=== PATIENT | male | born 1950 | race Caucasian/White ===

== ENCOUNTER → 2017-11-19 | Outpatient (CLI) | payer OTHER ==
[~2017-11-19] MED LIST: BISO1TAB4; BISO1TAB6; BP MED; HYDR-3720 PO; NASALCORT; OMEP20CA12
== END ==
LOC: PREOP 05:35
PROVIDERS: ATTEND Surgery
DX: Z01.818 Encounter for other preprocedural examination (principal); Z12.11 Encounter for screening for malignant neoplasm of colon; K21.9 Gastro-esophageal reflux disease without esophagitis

== ENCOUNTER → 2017-12-08 | Outpatient (CLI) | payer MEDICARE, OTHER ==
[~2017-12-08] MED LIST changes: +APIX5TAB PO; +ASCO-262 PO; +BISO1TAB6 PO; +CLAR-19 PO; +CRAN400T3 PO; +FLUT16SP22 NS; +LOSA50TA36 PO; +METF500T4 PO; +METR500T21 PO; +MULT-35 PO; +PANT40TA3 PO; +TAMS0.4C2 PO
== END ==
LOC: CARD 11:01
PROVIDERS: ATTEND Internal Medicine Interventional Cardiology
DX: I48.91 Unspecified atrial fibrillation (principal); I10 Essential (primary) hypertension; E11.9 Type 2 diabetes mellitus without complications; E66.9 Obesity, unspecified
CPT/HCPCS: 93306

== ENCOUNTER → 2017-12-09 | Outpatient (CLI) | payer MEDICARE, OTHER ==
[~2017-12-09] VITALS: Ht 177.8 cm; Wt 123.8 kg
[~2017-12-09] MED LIST changes: +CATHETER FLUSH 10 ML SYR IV PRN; +REGADENOSON 0.4 MG/5 ML SYR (LEXISCAN) IV ONE
[2017-12-09 09:28] VITALS: BP 131/93
[2017-12-09 09:32] VITALS: BP 155/90
[2017-12-09 22:11] VITALS: BP 133/93
--- NOTE | 2017-12-09 22:11 | Cardiology Stress Test Report ---
Stress Test Report Type of NM Stress Test: Test Type: LEXISCAN 0.4MG/5ML Date of Procedure/Referring: Date of Procedure: Dec 09, 2017 PCP Orestes Montalvo MD Admitting Physician Marlyn Alcaraz MD Indications: Atrial fibrillation Baseline Heart Rate: 86 Baseline Blood Pressure: Blood Pressure Systolic: 133 Blood Pressure Diastolic: 93 Baseline EKG: Baseline EKG: Atrial fibrillation Summary: The patient was brought to the stress lab after informed consent was taken. Lexiscan stress test was performed according to the protocol. Low-grade exercise was performed. Baseline EKG showed atrial fibrillation at 86 bpm. Blood pressure 133/93 mmHg. Maximum heart rate 139 BPM with blood pressure of 155/90 mmHg. Patient did not have any chest pain or ST changes during Lexiscan infusion. 10.61 mCi of Myoview was given for rest imaging and 31.4 mCi of Myoview was given for stress imaging. Transient ischemic dilatation score 1.0. Ejection fraction of 50 percent with normal wall motion. There is a small reversible apical defect noted. Conclusion: Pharmacological nuclear stress test is negative for ischemia. normal LV function with no wall motion abnormalities. mild reversible defect in the apex which in the presence of normal wall motion could be an artifact. Clinical correlation is recommended. Orestes MONTALVO MD Dec 09, 2017 10:11 pm
== END ==
LOC: CARD 07:24
PROVIDERS: ATTEND Internal Medicine Interventional Cardiology
DX: I48.91 Unspecified atrial fibrillation (principal); E11.9 Type 2 diabetes mellitus without complications; I10 Essential (primary) hypertension; E66.9 Obesity, unspecified
CPT/HCPCS: 78452; 93017

== ENCOUNTER 2017-12-30 07:38 | Day surgery (SDC) | payer MEDICARE, OTHER ==
[~2017-12-30] VITALS: Ht 177.8 cm; Wt 123.8 kg
[2017-12-30] VITALS (8 sets, daily range): BP systolic 107–164; BP diastolic 56–115
[~2017-12-30 07:38] MED LIST changes: -CATHETER FLUSH 10 ML SYR IV PRN; -REGADENOSON 0.4 MG/5 ML SYR (LEXISCAN) IV ONE
--- OUTSIDE RECORDS SUMMARY | 2017-12-30 07:44 | XMS REPORT | Continuity of Care Document ---
Author Author [facility] Organization [facility] Address Unknown Phone Unavailable Allergies Active Description Code Type Severity Reaction Onset Reported/Identified Relationship to Patient Clinical Status Yes aspirin [id number] Drug Allergy Unknown N/A 12/19/2006 Yes codeine [id number] Drug Allergy Unknown N/A 12/19/2006 Yes Penicillins [id number] Drug Allergy Unknown N/A 12/19/2006 Yes ibuprofen [id number] Drug Allergy Mild N/A 03/02/2009 Medications There is no data. Problems Date Dx Coded Attending Type Code Diagnosis Diagnosed By 08/28/2015 LUL JORDAN MD Ot G47.33 OBSTRUCTIVE SLEEP APNEA (ADULT) (PEDIATR 09/30/2015 BRITTANI HUNTER MD Ot 729.5 11/06/2015 LEILA CABRERA Ot R00.2 12/29/2015 LEILA CABRERA Ot R00.2 PALPITATIONS 11/22/2017 RENATO MONTANA MD Ot K21.9 GASTRO-ESOPHAGEAL REFLUX DISEASE WITHOUT 11/22/2017 RENATO MONTANA MD Ot Z01.818 ENCOUNTER FOR OTHER PREPROCEDURAL EXAMIN 11/22/2017 RENATO MONTANA MD Ot Z12.11 ENCOUNTER FOR SCREENING FOR MALIGNANT NE 11/24/2017 RENATO MONTANA MD Ot K21.9 GASTRO-ESOPHAGEAL REFLUX DISEASE WITHOUT 11/24/2017 RENATO MONTANA MD Ot Z01.818 ENCOUNTER FOR OTHER PREPROCEDURAL EXAMIN 11/24/2017 RENATO MONTANA MD Ot Z12.11 ENCOUNTER FOR SCREENING FOR MALIGNANT NE 12/02/2017 BRITTANI HUNTER MD Ot 729.5 PAIN IN LIMB 12/02/2017 LEILA CABRERA Ot R00.2 PALPITATIONS 12/02/2017 RENATO MONTANA MD Ot K21.9 GASTRO-ESOPHAGEAL REFLUX DISEASE WITHOUT 12/02/2017 RENATO MONTANA MD Ot Z01.818 ENCOUNTER FOR OTHER PREPROCEDURAL EXAMIN 12/02/2017 RENATO MONTANA MD Ot Z12.11 ENCOUNTER FOR SCREENING FOR MALIGNANT NE 12/10/2017 Orestes MELÉNDEZ MD Ot E11.9 TYPE 2 DIABETES MELLITUS WITHOUT COMPLIC 12/10/2017 Orestes MELÉNDEZ MD, Ot E66.9 OBESITY, UNSPECIFIED 12/10/2017 Orestes MELÉNDEZ MD Ot I10 ESSENTIAL (PRIMARY) HYPERTENSION 12/10/2017 Orestes MELÉNDEZ MD Ot I48.91 UNSPECIFIED ATRIAL FIBRILLATION 12/14/2017 Orestes MELÉNDEZ MD, Ot E11.9 TYPE 2 DIABETES MELLITUS WITHOUT COMPLIC 12/14/2017 Orestes MELÉNDEZ MD, Ot E66.9 OBESITY, UNSPECIFIED 12/14/2017 Orestes MELÉNDEZ MD Ot G47.30 SLEEP APNEA, UNSPECIFIED 12/14/2017 Orestes MELÉNDEZ MD Ot I10 ESSENTIAL (PRIMARY) HYPERTENSION 12/14/2017 Orestes MELÉNDEZ MD Ot I48.91 UNSPECIFIED ATRIAL FIBRILLATION 12/14/2017 Orestes MELÉNDEZ MD Ot Z53.9 PROCEDURE AND TREATMENT NOT CARRIED OUT, 12/14/2017 Orestes MELÉNDEZ MD Ot Z68.41 BODY MASS INDEX (BMI) 40.0-44.9, ADULT 12/14/2017 Orestes MELÉNDEZ MD Ot Z79.01 CUSTODIAL (CURRENT) USE OF ANTICOAGULANT 12/14/2017 Orestes MELÉNDEZ MD Ot Z79.84 CUSTODIAL (CURRENT) USE OF ORAL HYPOGLYC 12/14/2017 Orestes MELÉNDEZ MD Ot 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 Results There is no data. Encounters ACCT No. Visit Date/Time Discharge Status Pt. Type Provider Facility Loc./Unit Complaint [id number] 12/09/2017 07:24:00 12/09/2017 23:59:59 CLS Outpatient Orestes MELÉNDEZ MD [facility] CARD I48.91 A FIB [id number] 12/08/2017 11:01:00 12/08/2017 23:59:59 CLS Outpatient Orestes MELÉNDEZ MD [facility] CARD I48.91 AFIB [id number] 12/02/2017 10:32:00 12/02/2017 23:59:59 CLS Outpatient Orestes MELÉNDEZ MD [facility] CATH AF [id number] 11/24/2017 13:15:00 11/24/2017 23:59:59 CLS Preadmit RENATO MONTANA MD [facility] ENDO SCREENING/ABD PAIN/ REFLUX [id number] 11/19/2017 05:35:00 11/19/2017 23:59:59 CLS Outpatient RENATO MONTANA MD [facility] PREOP COLONOSCOPY/EGD [id number] 12/30/2015 09:00:00 12/30/2015 23:59:59 CLS Preadmit LEILA CABRERA [facility] CARD PALP [id number] 09/30/2015 08:58:00 12/29/2015 00:01:00 DIS Outpatient LEILA CABRERA [facility] CARD PALP [id number] 08/27/2015 21:12:00 08/28/2015 06:45:00 DIS Outpatient LUL JORDAN MD [facility] SLEEP OBSERVED APNEAS SNORING MIKAELA [id number] 03/22/2013 15:43:00 03/22/2013 23:59:59 CLS Outpatient BRITTANI HUNTER MD [facility] RAD RT FOOT PAIN [id number] 12/30/2017 09:30:00 PEN Preadmit Orestes MELÉNDEZ MD [facility] AFIB,ABN NUCLEAR STRESS TEST [id number] 09/30/2015 08:56:00 Document Registration
[2017-12-30] MEDS ORDERED: NS IV 1000 ML 1,000 ML ONE (07:46)
[2017-12-30] MEDS ORDERED: HEParin (CATH LAB) 2,000 ML IV ONE (07:47)
[2017-12-30] MEDS ORDERED: NS IV 1000 ML 1,000 ML IV SCH ×2 (08:00→10:43)
[2017-12-30 08:16] LABS: HEMOGLOBIN 15.4 G/DL (13.3-17.7); MEAN PLATELET VOLUME 11.7 FL (7.4-10.4); RED BLOOD COUNT 5.01 10^6/uL (4.35-5.85); RED CELL DISTRIBUTION WIDTH 13.8 % (10.0-14.5); WHITE BLOOD COUNT 6.7 10^3/uL (4.3-11.0)
[2017-12-30] MEDS ORDERED: INFLUENZA TRIvalent 2017-2018 0.5 ML/45 MCG SYR IM ONE (08:30)
[2017-12-30 08:32] LABS: INR 1.1 (0.8-1.4); PROTHROMBIN TIME PATIENT 14.6 SEC (12.2-14.7)
[2017-12-30 08:40] LABS: ALANINE AMINOTRANSFERASE 66 U/L (0-55); ALBUMIN 4.4 GM/DL (3.2-4.5); ALKALINE PHOSPHATASE 61 U/L (40-136); BILIRUBIN,TOTAL 1.5 MG/DL (0.1-1.0); BUN/CREATININE RATIO 16; CALCIUM 9.5 MG/DL (8.5-10.1); CARBON DIOXIDE 24 MMOL/L (21-32); CHLORIDE 106 MMOL/L (98-107); CHOLESTEROL 168 MG/DL (< 200); CREATININE SERUM 0.99 MG/DL (0.60-1.30); GFR ESTIMATED > 60; GLUCOSE 98 MG/DL (70-105); HDL CHOLESTEROL 45 MG/DL (40-60); POTASSIUM 4.1 MMOL/L (3.6-5.0); SODIUM 138 MMOL/L (135-145); TOTAL PROTEIN 7.7 GM/DL (6.4-8.2); TRIGLYCERIDES 100 MG/DL (<150); VLDL CHOLESTEROL 20 MG/DL (5-40)
[2017-12-30] MEDS ORDERED: ACET-2267 PO (08:50)
[2017-12-30] MEDS ORDERED: fentaNYL INJECTION 100 MCG/2 ML AMP ONE (09:20)
[2017-12-30] MEDS ORDERED: HEParin 1000 UNIT/ML (10ML VIAL) FOR BOLUS ONE (09:20)
[2017-12-30] MEDS ORDERED: VERAPAMIL 5 MG/2 ML (CALAN) VIAL IV ONE (09:20)
[2017-12-30] MEDS ORDERED: NITRO DRIP 25000 MCG/D5W 250 ML IV ONE (09:20)
[2017-12-30] MEDS ORDERED: MIDAZOLAM 5 MG/5 ML (VERSED) VIAL ONE (09:20)
[2017-12-30] MEDS ORDERED: LIDOCAINE 1% INJ 50 ML (XYLOCAINE) VIAL ONE (09:26)
--- NOTE | 2017-12-30 10:43 | Cardiac Procedure Note-CS/ASA ---
Pre-Procedure Note Pre-Op Procedure Note H&P Reviewed The H&P was reviewed, patient examined and no changes noted. Date H&P Reviewed: Dec 30, 2017 Time H&P Reviewed: 09:45 Conscious Sedation Pre-Proced Time Reviewed: 09:45 ASA Class: 3 Airway Mallampati Classification: (lower sioux appropriate class) I. II. III, IV Lungs Heart ASA score ASA 1: a normal healthy patient ASA 2: a patient with a mild systemic disease (mid diabetes, controlled hypertension, obesity ASA 3: a patient with a severe systemic disease that limits activity (angina , COPD, prior Myocardial infarction) ASA 4: a patient with an incapacitating disease that is a constant threat to life (CHF, renal failure) ASA 5: a moribund patient not expected to survive 24 hrs. (ruptured aneurysm) ASA 6: a declared brain patient whose organs are being harvested. For emergent operations, add the letter E after the classification Grade 1 Sedation Plan: Analgesia, Amnesia, Plan communicated to team members, Discussed options with patient/fam, Discussed risks with patient/fam Note The patient is an appropriate candidate to undergo the planned procedure, sedation, and anesthesia. The patient immediately re-assessed prior to indication. Orestes MELÉNDEZ MD Dec 30, 2017 10:43 am
[2017-12-30] MEDS ORDERED: PATIENT MAY USE OWN MEDS, ALL PO SCH (10:45)
--- NOTE | 2017-12-30 10:49 | Coronary Angiography Report ---
Coronary Angiography Report DATE OF PROCEDURE: 12/30/17 INDICATION: atrial fibrillation, need for class IC antiarrhythmic, abnormal nuclear stress test. PREOPERATIVE DIAGNOSIS: atrial fibrillation, need for class IC antiarrhythmic, abnormal nuclear stress test. POSTOPERATIVE DIAGNOSIS: patent epicardial coronary vessels. HISTORY: this is a 67-year-old gentleman with history of persistent atrial fibrillation. Class IC antiarrhythmic therapy is recommended. Therefore to rule out CAD, nuclear stress test was performed which was abnormal. Therefore, the patient was scheduled for coronary angiography. PROCEDURES PERFORMED: 1.Coronary angiography. 2.Left heart catheterization. 3. Aortic root injection. 4. Thoracic aortogram. COMPLICATIONS: None. SPECIMENS: None. ESTIMATED BLOOD LOSS: 10 mL ANESTHESIA: Conscious sedation ANTICOAGULATION: IV heparin CONTRAST: 100 mL. FLUOROSCOPY: 5.3 minutes. FLOUROSCOPY DOSE: 723 mgy. PROCEDURE DETAILS: The patient is a 67 male and was brought to the minilab operator after informed consent was taken. All the risks and complications were explained in detail; this included the risk of bleeding, vascular damage, stroke , DC and even . The patient was draped and prepped in the usual sterile fashion. Access was gained in the right radial artery with a 6 Maori sheath. Coronary angiography of the left system, aortic root injection, aortogram and left heart catheterization was performed with the [place] catheter. RCA was engaged with a JR4 catheter. FINDINGS: 1.Left main: patent. 2.LAD: patent, transapical vessel. Mild slow flow was noted. 3.Left circumflex artery: patent 4.RCA: patent with mild slow flow was noted. 5.Left heart catheterization: aortic pressure 108/78 mmHg. LV pressure 106/16 mmHg. LVEDP 20 mmHg. Mild LV systolic dysfunction with an EF of 45 percent with global hypokinesis. No gradient across the aortic valve. 6. Aortic root injection: Patent ostium of the left main with no aortic regurgitation. 7. Aortogram: No evidence of aneurysm or dissection noted. CONCLUSIONS: Patent epicardial coronary arteries. Slow flow noted which is likely secondary to endothelial dysfunction. Mild LV systolic dysfunction. Jeny Montalvo MD, FACP, FACC, [facility] Interventional Cardiology Orestes MONTALVO MD Dec 30, 2017 10:49 am
--- NOTE | 2017-12-30 10:51 | Discharge Inst-Post CATH ---
Discharge Inst-CATH Post Cardiac Cath D/C Inst Follow Up/Plan Dr. Montalvo in one to 2 weeks. CARDIAC CATH DISCHARGE INSTRUCTIONS *Hold Metformin for 48 hours post heart cath. ACTIVITY * Go Home directly and rest. * Limit activity of the leg (or wrist if it was used) for 7 days including aerobics, swimming, jogging, bicycling, etc. * Restrict stair-climbing for 7 days if possible, if not, climb up with your non -cath leg, then bring together on the same step. * Avoid lifting, pushing, pulling or excessive movement of the affected extremity for 7 days. * Customary sexual activity may be resumed after 2 days-use caution not to use a position that strains or causes pain to the affected extremity. * No driving for 24 hours. * NO SMOKING. * Avoid straining for bowel movements for 7 days. * Gentle walking on level ground is allowed. * Returning to work will depend on the type of procedure and the results. Your doctor will discuss this with you. CALL YOUR DOCTOR FOR ANY OF THE FOLLOWING: *If bleeding from the puncture site occurs- Apply gentle pressure to site with clean cloth and call your doctor or EMS. * If a knot or lump forms under the skin, increases in size, or causes pain. * If bruising appears to be worsening or moving further down your leg instead of disappearing. * Temperature above 101 F. CARE OF YOUR GROIN INCISION; * Bruising or purple discoloration of the skin near the puncture site is common. * You may shower only, no bathtub bathing for 5 days. Be careful to avoid slipping as your leg may feel stiff. * If a closure device was used on your femoral artery, please see the attached guide regarding care of the device and your leg. * REMOVE the dressing from your groin the next day after your procedure in the shower. CARE OF YOUR WRIST INCISION; * Bruising or purple discoloration of the skin near the puncture site is common. * You may shower. * DO NOT submerge wrist. * Remove dressing in 24 hours. Orestes MONTALVO MD Dec 30, 2017 10:51 am
--- NOTE | 2017-12-30 10:53 | Cardiology Discharge Summary ---
Diagnosis/Chief Complaint Date of Admission 12/30/2017 Date of Discharge 12/30/2017 Admission Diagnosis atrial fibrillation, abnormal nuclear stress test Final/Discharge Diagnosis patent epicardial coronary arteries. Chief Complaint/HPI Chief Complaint/HPI this is a 67-year-old gentleman with persistent atrial fibrillation. Class IC antiarrhythmic therapy needs to be started. CAD needs to be ruled out therefore stress test was performed which was abnormal. Therefore coronary angiography was recommended. Discharge Summary Procedures coronary angiography which shows patent epicardial coronary vessels. Hospital Course stable. Pending Labs Laboratory Tests 12/30/17 08:10: White Blood Count 6.7, Red Blood Count 5.01, Hemoglobin 15.4, Hematocrit 44, Mean Corpuscular Volume 89, Mean Corpuscular Hemoglobin 31, Mean Corpuscular Hemoglobin Concent 35, Red Cell Distribution Width 13.8, Platelet Count 140, Mean Platelet Volume 11.7, Prothrombin Time 14.6, INR Comment 1.1, Activated Partial Thromboplast Time 42, Sodium Level 138, Potassium Level 4.1, Chloride Level 106, Carbon Dioxide Level 24, Anion Gap 8, Blood Urea Nitrogen 16, Creatinine 0.99, Estimat Glomerular Filtration Rate > 60, BUN/Creatinine Ratio 16, Glucose Level 98, Calcium Level 9.5, Total Bilirubin 1.5, Aspartate Amino Transf (AST/SGOT) 39, Alanine Aminotransferase (ALT/SGPT) 66, Alkaline Phosphatase 61, Total Protein 7.7, Albumin 4.4, Triglycerides Level 100, Cholesterol Level 168, LDL Cholesterol Direct 109, VLDL Cholesterol 20, HDL Cholesterol 45 Discussion & Recommendations Discussion follow-up with Dr. Montalvo in one to 2 weeks. Continue apixaban. Follow up appt.: Dr. Montalvo in one to 2 weeks. Dicharge Diet: Regular Diet Activity as Tolerated: Yes Home Medications Reviewed patient Home Medication Reconciliation Form Discharge Home Medications: Reviewed and agree with Discharge Medication list on patient's Discharge Instruction sheet Condition at discharge stable. Instructions to patient/family Dr. Montalvo in one to 2 weeks. Orestes MONTALVO MD Dec 30, 2017 10:53 am
== END 2017-12-30 13:35 | disposition home or self-care (01) ==
LOC: CATH 07:38 → ICU 10:58 → CATH 13:35
PROVIDERS: ATTEND Internal Medicine Interventional Cardiology
DX: I48.1 Persistent atrial fibrillation (principal); R94.39 Abnormal result of other cardiovascular function study; I07.1 Rheumatic tricuspid insufficiency; I10 Essential (primary) hypertension; E11.9 Type 2 diabetes mellitus without complications; G47.30 Sleep apnea, unspecified; E66.9 Obesity, unspecified; Z68.39 Body mass index [BMI] 39.0-39.9, adult; Z79.01 Long term (current) use of anticoagulants; Z79.84 Long term (current) use of oral hypoglycemic drugs; Z79.899 Other long term (current) drug therapy
CPT/HCPCS: 36415; 80053; 80061; 85027; 85610; 85730; 87081; 93458; 93567

== ENCOUNTER 2018-01-27 07:57 | Day surgery (SDC) | payer MEDICARE, OTHER ==
[2018-01-27] VITALS (8 sets, daily range): BP systolic 137–151; BP diastolic 92–119
[~2018-01-27] VITALS: Ht 177.8 cm; Wt 123.8 kg
[~2018-01-27 07:57] MED LIST changes: +ACET-2267 PO
[2018-01-27] MEDS ORDERED: NS IV 1000 ML 1,000 ML ONE (07:58)
[2018-01-27] MEDS ORDERED: LIDOCAINE 1% INJ 50 ML (XYLOCAINE) VIAL ONE (07:58)
[2018-01-27] MEDS ORDERED: NS IV 1000 ML 1,000 ML IV SCH (08:45)
[2018-01-27] MEDS ORDERED: proPOfol 200 MG/20 ML (DIPRIVAN) VIAL IV ONE (08:51)
[2018-01-27] MEDS ORDERED: MIDAZOLAM 2 MG/2 ML (VERSED) VIAL ONE (08:52)
[2018-01-27] MEDS ORDERED: LIDOCAINE 2% VISCOUS 15 ML UDC ONE (09:17)
--- NOTE | 2018-01-27 10:00 | Progress Note-Standard ---
Standard Progress Note Progress Notes/Assess & Plan Time Seen by Provider: 09:15 Final Diagnosis Consulted for sedation for MANUEL/cardioversion. History obtained, chart reviewed. Propofol 100mg IV tolerated well. VSS report to RN care assumed. JUAN PABLO RUIZ CRNA Jan 27, 2018 10:00
--- NOTE | 2018-01-27 10:13 | Implantation of Loop Monitor ---
Implant of Loop Monitior PROCEDURE PHYSICIAN: Jeny Montalvo MD IMPLANTATION OF LOOP MONITOR REPORT DATE OF PROCEDURE: 01/27/18 ATTENDING PHYSICIAN: Dr. Hunter Montalvo. REFERRING PHYSICIAN: PERFORMING PHYSICIAN: Dr. Hunter Montalvo. INDICATION: Long-term surveillance of atrial fibrillation PREOP DIAGNOSIS: Long-term surveillance of atrial fibrillation POSTOP DIAGNOSIS: Atrial fibrillation, s/p implantation of loop recorder. PROCEDURE DETAILS: The patient is a 67 male with history of atrial fibrillation requiring long- term surveillance. Therefore implantable loop recorder was discussed and agreed with the patient. Informed consent was taken. All risks and complications were discussed at length. The patient was draped and prepped in the usual sterile fashion. Local anesthesia was lidocaine, which was given in the substernal area close to the 4th intercostal space. [employer] Linq Loop monitor was implanted according to the protocol. Steri-Strips were placed at the end of the procedure. There were no complications and the patient tolerated the procedure well. The device was interrogated with a voltage of >0.2mV. ANESTHESIA: Local anesthesia with lidocaine. COMPLICATIONS: None CONTRAST/FLUOROSCOPY: None CONCLUSION: 1. Successful implantation of loop monitor for AF. 2. No complication and the patient tolerated the procedure well. Jeny Montalvo MD, [facility], CCDS Cardiac Electrophysiology Orestes MONTALVO MD Jan 27, 2018 10:13 am
--- NOTE | 2018-01-27 10:44 | Progress Note-Standard ---
Standard Progress Note Progress Notes/Assess & Plan Time Seen by Provider: 10:40 Final Diagnosis MAC anesthetic, ASA3. JUAN PABLO RUIZ POWER PLANT MANAGER Jan 27, 2018 10:44
--- OUTSIDE RECORDS SUMMARY | 2018-01-27 11:18 | XMS REPORT | Continuity of Care Document ---
Author Author [facility] Organization [facility] Address Unknown Phone Unavailable Allergies Active Description Code Type Severity Reaction Onset Reported/Identified Relationship to Patient Clinical Status Yes aspirin [id number] Drug Allergy Unknown N/A 12/19/2006 Yes codeine [id number] Drug Allergy Unknown N/A 12/19/2006 Yes Penicillins [id number] Drug Allergy Unknown N/A 12/19/2006 Yes ibuprofen [id number] Drug Allergy Mild N/A 03/02/2009 Medications There [...] PROCEDURE AND TREATMENT NOT CARRIED OUT, 12/14/2017 Orestse MELÉNDEZ MD Ot Z68.41 BODY MASS INDEX (BMI) 40.0-44.9, ADULT 12/14/2017 Orestes MELÉNDEZ MD Ot Z79.01 LONG-TERM (CURRENT) USE OF ANTICOAGULANT 12/14/2017 Orestes MELÉNDEZ MD Ot Z79.84 EXTENDER (CURRENT) USE OF ORAL HYPOGLYC 12/14/2017 Orestes MELÉNDEZ MD Ot Z79.899 OTHER LONG-TERM (CURRENT) DRUG THERAPY 12/28/2017 Orestes MELÉNDEZ MD Ot E11.9 TYPE 2 DIABETES MELLITUS WITHOUT COMPLIC 12/28/2017 Orestes MELÉNDEZ MD, Ot E66.9 OBESITY, UNSPECIFIED 12/28/2017 Orestes MELÉNDEZ MD Ot I10 ESSENTIAL (PRIMARY) HYPERTENSION 12/28/2017 Orestes MELÉNDEZ MD Ot I48.91 UNSPECIFIED ATRIAL FIBRILLATION 12/29/2017 Orestes MELÉNDEZ MD Ot E11.9 TYPE 2 DIABETES MELLITUS WITHOUT COMPLIC 12/29/2017 Orestes MELÉNDEZ MD Ot E66.9 OBESITY, UNSPECIFIED 12/29/2017 Orestes MELÉNDEZ MD Ot I10 ESSENTIAL (PRIMARY) HYPERTENSION 12/29/2017 Orestes MELÉNDEZ MD Ot I48.91 UNSPECIFIED ATRIAL FIBRILLATION 12/30/2017 Orestes MELÉNDEZ MD Ot E11.9 TYPE 2 DIABETES MELLITUS WITHOUT COMPLIC 12/30/2017 Orestes MELÉNDEZ MD Ot E66.9 OBESITY, UNSPECIFIED 12/30/2017 Orestes MELÉNDEZ MD Ot G47.30 SLEEP APNEA, UNSPECIFIED 12/30/2017 Orestes MELÉNDEZ MD Ot I07.1 RHEUMATIC TRICUSPID INSUFFICIENCY 12/30/2017 Orestes MELÉNDEZ MD Ot I10 ESSENTIAL (PRIMARY) HYPERTENSION 12/30/2017 Orestes MELÉNDEZ MD Ot I48.1 PERSISTENT ATRIAL FIBRILLATION 12/30/2017 Orestes MELÉNDEZ MD Ot R94.39 ABNORMAL RESULT OF OTHER CARDIOVASCULAR 12/30/2017 Orestes MELÉNDEZ MD Ot Z68.39 BODY MASS INDEX (BMI) 39.0-39.9, ADULT 12/30/2017 Orestes MELÉNDEZ MD Ot Z79.01 EXTENDER (CURRENT) USE OF ANTICOAGULANT 12/30/2017 Orestes MELÉNDEZ MD Ot Z79.84 LONG-TERM (CURRENT) USE OF ORAL HYPOGLYC 12/30/2017 Orestes MELÉNDEZ MD Ot Z79.899 OTHER LONG-TERM (CURRENT) DRUG THERAPY 01/06/2018 Orestes MELÉNDEZ MD Ot E11.9 TYPE 2 DIABETES MELLITUS WITHOUT COMPLIC 01/06/2018 Orestes MELÉNDEZ MD Ot E66.9 OBESITY, UNSPECIFIED 01/06/2018 Orestes MELÉNDEZ MD Ot G47.30 SLEEP APNEA, UNSPECIFIED 01/06/2018 Orestes MELÉNDEZ MD Ot I07.1 RHEUMATIC TRICUSPID INSUFFICIENCY 01/06/2018 Orestes MELÉNDEZ MD Ot I10 ESSENTIAL (PRIMARY) HYPERTENSION 01/06/2018 Orestes MELÉNDEZ MD Ot I48.1 PERSISTENT ATRIAL FIBRILLATION 01/06/2018 Orestes MELÉNDEZ MD Ot R94.39 ABNORMAL RESULT OF OTHER CARDIOVASCULAR 01/06/2018 Orestes MELÉNDEZ MD Ot Z68.39 BODY MASS INDEX (BMI) 39.0-39.9, ADULT 01/06/2018 Orestes MELÉNDEZ MD Ot Z79.01 LONG-TERM (CURRENT) USE OF ANTICOAGULANT 01/06/2018 Orestes MELÉNDEZ MD Ot Z79.84 LONG-TERM (CURRENT) USE OF ORAL HYPOGLYC 01/06/2018 Orestes MELÉNDEZ MD Ot Z79.899 OTHER LONG-TERM (CURRENT) DRUG THERAPY 01/08/2018 Orestes MELÉNDEZ MD Ot E11.9 TYPE 2 DIABETES MELLITUS WITHOUT COMPLIC 01/08/2018 Orestes MELÉNDEZ MD Ot E66.9 OBESITY, UNSPECIFIED 01/08/2018 Orestes MELÉNDEZ MD Ot G47.30 SLEEP APNEA, UNSPECIFIED 01/08/2018 Orestes MELÉNDEZ MD Ot I07.1 RHEUMATIC TRICUSPID INSUFFICIENCY 01/08/2018 Orestes MELÉNDEZ MD Ot I10 ESSENTIAL (PRIMARY) HYPERTENSION 01/08/2018 Orestes MELÉNDEZ MD Ot I48.1 PERSISTENT ATRIAL FIBRILLATION 01/08/2018 Orestes MELÉNDEZ MD Ot R94.39 ABNORMAL RESULT OF OTHER CARDIOVASCULAR 01/08/2018 Orestes MELÉNDEZ MD Ot Z68.39 BODY MASS INDEX (BMI) 39.0-39.9, ADULT 01/08/2018 Orestes MELÉNDEZ MD Ot Z79.01 LONG-TERM (CURRENT) USE OF ANTICOAGULANT 01/08/2018 Orestes MELÉNDEZ MD Ot Z79.84 EXTENDER (CURRENT) USE OF ORAL HYPOGLYC 01/08/2018 Orestes MELÉNDEZ MD Ot Z79.899 OTHER LONG-TERM (CURRENT) DRUG THERAPY 01/12/2018 Orestes MELÉNDEZ MD Ot E11.9 TYPE 2 DIABETES MELLITUS WITHOUT COMPLIC 01/12/2018 Orestes MELÉNDEZ MD Ot E66.9 OBESITY, UNSPECIFIED 01/12/2018 Orestes MELÉNDEZ MD, Ot G47.30 SLEEP APNEA, UNSPECIFIED 01/12/2018 Orestes MELÉNDEZ MD Ot I10 ESSENTIAL (PRIMARY) HYPERTENSION 01/12/2018 Orestes MELÉNDEZ MD, Ot I48.91 UNSPECIFIED ATRIAL FIBRILLATION 01/12/2018 Orestes MELÉNDEZ MD, Ot Z53.9 PROCEDURE AND TREATMENT NOT CARRIED OUT, 01/12/2018 Orestes MELÉNDEZ MD, Ot Z68.41 BODY MASS INDEX (BMI) 40.0-44.9, ADULT 01/12/2018 Orestes MELÉNDEZ MD, Ot Z79.01 LONG-TERM (CURRENT) USE OF ANTICOAGULANT 01/12/2018 Orestes MELÉNDEZ MD, Ot Z79.84 LONG-TERM (CURRENT) USE OF ORAL HYPOGLYC 01/12/2018 Orestes MELÉNDEZ MD, Ot Z79.899 OTHER LONG-TERM (CURRENT) DRUG THERAPY Procedures There is no data. Results Test Result Range Automated blood complete blood count (hemogram) panel - 12/30/17 08:10 Blood leukocytes automated count (number/volume) 6.7 10*3/uL 4.3-11.0 Blood erythrocytes automated count (number/volume) 5.01 10*6/uL 4.35-5.85 Venous blood hemoglobin measurement (mass/volume) 15.4 g/dL 13.3-17.7 Blood hematocrit (volume fraction) 44 % 40-54 Automated erythrocyte mean corpuscular volume 89 [foz_us] 80-99 Automated erythrocyte mean corpuscular hemoglobin (mass per erythrocyte) 31 pg 25-34 Automated erythrocyte mean corpuscular hemoglobin concentration measurement ( mass/volume) 35 g/dL 32-36 Automated erythrocyte distribution width ratio 13.8 % 10.0-14.5 Automated blood platelet count (count/volume) 140 10*3/uL 130-400 Automated blood platelet mean volume measurement 11.7 [foz_us] 7.4-10.4 PT panel in platelet poor plasma by coagulation assay - 12/30/17 08:10 Prothrombin time (PT) in platelet poor plasma by coagulation assay 14.6 s 12.2-14.7 INR in platelet poor plasma or blood by coagulation assay 1.1 0.8-1.4 Activated partial thromboplastin time (aPTT) in platelet poor plasma bycoagulation assay - 12/30/17 08:10 Activated partial thromboplastin time (aPTT) in platelet poor plasma bycoagulation assay 42 s 24-35 Comprehensive metabolic panel - 12/30/17 08:10 Serum or plasma sodium measurement (moles/volume) 138 mmol/L 135-145 Serum or plasma potassium measurement (moles/volume) 4.1 mmol/L 3.6-5.0 Serum or plasma chloride measurement (moles/volume) 106 mmol/L 98-107 Carbon dioxide 24 mmol/L 21-32 Serum or plasma anion gap determination (moles/volume) 8 mmol/L 5-14 Serum or plasma urea nitrogen measurement (mass/volume) 16 mg/dL 7-18 Serum or plasma creatinine measurement (mass/volume) 0.99 mg/dL 0.60-1.30 Serum or plasma urea nitrogen/creatinine mass ratio 16 NRG Serum or plasma creatinine measurement with calculation of estimated glomerular filtration rate > NRG Serum or plasma glucose measurement (mass/volume) 98 mg/dL 70-105 Serum or plasma calcium measurement (mass/volume) 9.5 mg/dL 8.5-10.1 Serum or plasma total bilirubin measurement (mass/volume) 1.5 mg/dL 0.1-1.0 Serum or plasma alkaline phosphatase measurement (enzymatic activity/volume) 61 U/L 40-136 Serum or plasma aspartate aminotransferase measurement (enzymatic activity/ volume) 39 U/L 5-34 Serum or plasma alanine aminotransferase measurement (enzymatic activity/volume ) 66 U/L 0-55 Serum or plasma protein measurement (mass/volume) 7.7 g/dL 6.4-8.2 Serum or plasma albumin measurement (mass/volume) 4.4 g/dL 3.2-4.5 Lipid 1996 panel - 12/30/17 08:10 Serum or plasma triglyceride measurement (mass/volume) 100 mg/dL <150 Serum or plasma cholesterol measurement (mass/volume) 168 mg/dL < 200 Serum or plasma cholesterol in HDL measurement (mass/volume) 45 mg/ dL 40-60 Cholesterol in LDL [mass/volume] in serum or plasma by direct assay 109 mg/dL 1-129 Serum or plasma cholesterol in VLDL measurement (mass/volume) 20 mg/ dL 5-40 Methicillin resistant Staphylococcus aureus (MRSA) screening culture - 08:10 Methicillin resistant Staphylococcus aureus (MRSA) screening culture NEG NRG Encounters ACCT No. Visit Date/Time Discharge Status Pt. Type Provider Facility Loc./Unit Complaint [id number] 12/30/2017 07:38:00 12/30/2017 13:35:00 DIS Outpatient Orestes MELÉNDEZ MD [facility] AFIB,ABN NUCLEAR STRESS TEST [id number] 12/09/2017 07:24:00 12/09/2017 23:59:59 CLS Outpatient Orestes MELÉNDEZ MD [facility] CARD I48.91 A FIB [id number] 12/08/2017 11:01:00 12/08/2017 23:59:59 CLS Outpatient Orestes MELÉNDEZ MD [facility] CARD I48.91 AFIB [id number] 12/02/2017 10:32:00 12/02/2017 23:59:59 CLS Outpatient Orestes MELÉNDEZ MD [facility] AF [id number] 11/24/2017 13:15:00 11/24/2017 23:59:59 CLS Preadmit RENATO MONTANA MD [facility] ENDO SCREENING/ABD PAIN/ REFLUX [id number] 11/19/2017 05:35:00 11/19/2017 23:59:59 CLS Outpatient RENATO MONTANA MD [facility] PREOP COLONOSCOPY/EGD [id number] 12/30/2015 09:00:00 12/30/2015 23:59:59 CLS Preadmit LEILA CABRERA [facility] CARD PALP [id number] 09/30/2015 08:58:00 12/29/2015 00:01:00 DIS Outpatient LEILA CABRERA [facility] CARD PALP [id number] 08/27/2015 21:12:00 08/28/2015 06:45:00 DIS Outpatient LUL JORDAN MD [facility] SLEEP OBSERVED APNEAS SNORING MIKAELA [id number] 03/22/2013 15:43:00 03/22/2013 23:59:59 CLS Outpatient DALE CLAROS, BRITTANI [place] [facility] RAD RT FOOT PAIN [id number] 01/27/2018 09:00:00 PEN Preadmit Orestes MELÉNDEZ MD [facility] CATH AFIB [id number] 09/30/2015 08:56:00 Document Registration [id number] 09/09/2017 09:45:00 09/09/2017 23:59:59 CLS Outpatient
== END 2018-01-27 14:39 | disposition home or self-care (01) ==
LOC: CATH 07:57
PROVIDERS: ATTEND Internal Medicine Interventional Cardiology
DX: I48.91 Unspecified atrial fibrillation (principal); I07.1 Rheumatic tricuspid insufficiency; I10 Essential (primary) hypertension; E11.9 Type 2 diabetes mellitus without complications; G47.30 Sleep apnea, unspecified; Z79.84 Long term (current) use of oral hypoglycemic drugs; Z79.899 Other long term (current) drug therapy
CPT/HCPCS: 92960; 93005; 93320; 93325

== ENCOUNTER 2018-05-05 07:18 | Day surgery (SDC) | payer MEDICARE, OTHER ==
[2018-05-05] VITALS (15 sets, daily range): BP systolic 105–133; BP diastolic 60–91
[~2018-05-05] VITALS: Ht 177.8 cm; Wt 115.7 kg
[~2018-05-05 07:18] MED LIST changes: +DRON400T2 PO; -METF500T4 PO; +METF500T5 PO
[2018-05-05] MEDS ORDERED: NS IV 1000 ML 1,000 ML ONE (07:22)
[2018-05-05] MEDS ORDERED: NS IV 1000 ML 1,000 ML IV SCH (07:30)
--- OUTSIDE RECORDS SUMMARY | 2018-05-05 07:44 | XMS REPORT | Continuity of Care Document ---
Author Author [facility] Organization [facility] Address Unknown Phone Unavailable Allergies Active Description Code Type Severity Reaction Onset Reported/Identified Relationship to Patient Clinical Status Yes aspirin [id number] Drug Allergy Unknown N/A 12/19/2006 Yes codeine [id number] Drug Allergy Unknown N/A 12/19/2006 Yes Penicillins [id number] Drug Allergy Unknown N/A 12/19/2006 Yes ibuprofen [id number] Drug Allergy Mild N/A 03/02/2009 Medications There [...] ADULT 12/14/2017 Orestes MELÉNDEZ MD Ot Z79.01 SENIOR CARE (CURRENT) USE OF ANTICOAGULANT 12/14/2017 Orestes MELÉNDEZ MD Ot Z79.84 PULP MIXER (CURRENT) USE OF ORAL HYPOGLYC 12/14/2017 Orestes MELÉNDEZ MD Ot Z79.899 OTHER SENIOR CARE (CURRENT) DRUG THERAPY 12/28/2017 Orestes MELÉNDEZ MD [...] ADULT 12/30/2017 Orestes MELÉNDEZ MD Ot Z79.01 PULP MIXER (CURRENT) USE OF ANTICOAGULANT 12/30/2017 Orestes MELÉNDEZ MD Ot Z79.84 SENIOR CARE (CURRENT) USE OF ORAL HYPOGLYC 12/30/2017 Orestes MELÉNDEZ MD Ot Z79.899 OTHER SENIOR CARE (CURRENT) DRUG THERAPY 01/06/2018 Orestes MELÉNDEZ MD [...] ADULT 01/06/2018 Orestes MELÉNDEZ MD Ot Z79.01 SENIOR CARE (CURRENT) USE OF ANTICOAGULANT 01/06/2018 Orestes MELÉNDEZ MD Ot Z79.84 SENIOR CARE (CURRENT) USE OF ORAL HYPOGLYC 01/06/2018 Orestes MELÉNDEZ MD Ot Z79.899 OTHER SENIOR CARE (CURRENT) DRUG THERAPY 01/08/2018 Orestes MELÉNDEZ MD [...] ADULT 01/08/2018 Orestes MELÉNDEZ MD Ot Z79.01 SENIOR CARE (CURRENT) USE OF ANTICOAGULANT 01/08/2018 Orestes MELÉNDEZ MD Ot Z79.84 PULP MIXER (CURRENT) USE OF ORAL HYPOGLYC 01/08/2018 Orestes MELÉNDEZ MD Ot Z79.899 OTHER SENIOR CARE (CURRENT) DRUG THERAPY 01/12/2018 Orestes MELÉNDEZ MD Ot E11.9 TYPE 2 DIABETES MELLITUS WITHOUT COMPLIC 01/12/2018 Orestes MELÉNDEZ MD Ot E66.9 OBESITY, UNSPECIFIED 01/12/2018 Orestes MELÉNDEZ MD Ot G47.30 SLEEP APNEA, UNSPECIFIED 01/12/2018 Orestes MELÉNDEZ MD Ot I10 ESSENTIAL (PRIMARY) HYPERTENSION 01/12/2018 Orestes MELÉNDEZ MD Ot I48.91 UNSPECIFIED ATRIAL FIBRILLATION 01/12/2018 Orestes MELÉNDEZ MD Ot Z53.9 PROCEDURE AND TREATMENT NOT CARRIED OUT, 01/12/2018 Orestes MELÉNDEZ MD Ot Z68.41 BODY MASS INDEX (BMI) 40.0-44.9, ADULT 01/12/2018 Orestes MELÉNDEZ MD Ot Z79.01 SENIOR CARE (CURRENT) USE OF ANTICOAGULANT 01/12/2018 Orestes MELÉNDEZ MD Ot Z79.84 SENIOR CARE (CURRENT) USE OF ORAL HYPOGLYC 01/12/2018 Orestes MELÉNDEZ MD Ot Z79.899 OTHER SENIOR CARE (CURRENT) DRUG THERAPY 01/27/2018 Orestes MELÉNDEZ MD Ot E11.9 TYPE 2 DIABETES MELLITUS WITHOUT COMPLIC 01/27/2018 Orestes MELÉNDEZ MD Ot G47.30 SLEEP APNEA, UNSPECIFIED 01/27/2018 Orestes MELÉNDEZ MD Ot I07.1 RHEUMATIC TRICUSPID INSUFFICIENCY 01/27/2018 Orestes MELÉNDEZ MD Ot I10 ESSENTIAL (PRIMARY) HYPERTENSION 01/27/2018 Orestes MELÉNDEZ MD Ot I48.91 UNSPECIFIED ATRIAL FIBRILLATION 01/27/2018 Orestes MELÉNDEZ MD Ot Z79.84 SENIOR CARE (CURRENT) USE OF ORAL HYPOGLYC 01/27/2018 Orestes MELÉNDEZ MD Ot Z79.899 OTHER SENIOR CARE (CURRENT) DRUG THERAPY 01/28/2018 Orestes MELÉNDEZ MD Ot E11.9 TYPE 2 DIABETES MELLITUS WITHOUT COMPLIC 01/28/2018 Orestes MELÉNDEZ MD Ot G47.30 SLEEP APNEA, UNSPECIFIED 01/28/2018 Orestes MELÉNDEZ MD Ot I07.1 RHEUMATIC TRICUSPID INSUFFICIENCY 01/28/2018 Orestes MELÉNDEZ MD Ot I10 ESSENTIAL (PRIMARY) HYPERTENSION 01/28/2018 Orestes MELÉNDEZ MD Ot I48.91 UNSPECIFIED ATRIAL FIBRILLATION 01/28/2018 Orestes MELÉNDEZ MD Ot Z79.84 SENIOR CARE (CURRENT) USE OF ORAL HYPOGLYC 01/28/2018 Orestes MELÉNDEZ MD Ot Z79.899 OTHER SENIOR CARE (CURRENT) DRUG THERAPY 01/28/2018 Orestes MELÉNDEZ MD Ot E11.9 TYPE 2 DIABETES MELLITUS WITHOUT COMPLIC 01/28/2018 Orestes MELÉNDEZ MD Ot G47.30 SLEEP APNEA, UNSPECIFIED 01/28/2018 Orestes MELÉNDEZ MD Ot I07.1 RHEUMATIC TRICUSPID INSUFFICIENCY 01/28/2018 Orestes MELÉNDEZ MD Ot I10 ESSENTIAL (PRIMARY) HYPERTENSION 01/28/2018 Orestes MELÉNDEZ MD Ot I48.91 UNSPECIFIED ATRIAL FIBRILLATION 01/28/2018 Orestes MELÉNDEZ MD Ot Z79.84 PULP MIXER (CURRENT) USE OF ORAL HYPOGLYC 01/28/2018 Orestes MELÉNDEZ MD Ot Z79.899 OTHER SENIOR CARE (CURRENT) DRUG THERAPY 03/03/2018 Orestes MELÉNDEZ MD Ot E11.9 TYPE 2 DIABETES MELLITUS WITHOUT COMPLIC 03/03/2018 Orestes MELÉNDEZ MD Ot E66.9 OBESITY, UNSPECIFIED 03/03/2018 Orestes MELÉNDEZ MD Ot G47.30 SLEEP APNEA, UNSPECIFIED 03/03/2018 Orestes MELÉNDEZ MD Ot I10 ESSENTIAL (PRIMARY) HYPERTENSION 03/03/2018 Oresets MELÉNDEZ MD Ot I48.0 PAROXYSMAL ATRIAL FIBRILLATION 03/03/2018 Orestes MELÉNDEZ MD Ot Z68.36 BODY MASS INDEX (BMI) 36.0-36.9, ADULT 03/03/2018 Orestes MELÉNDEZ MD Ot Z79.01 PULP MIXER (CURRENT) USE OF ANTICOAGULANT 03/03/2018 Orestes MELÉNDEZ MD Ot Z79.84 PULP MIXER (CURRENT) USE OF ORAL HYPOGLYC 03/03/2018 Orestes MELÉNDEZ MD Ot Z79.899 OTHER SENIOR CARE (CURRENT) DRUG THERAPY 03/03/2018 Orestes MELÉNDEZ MD Ot Z82.49 FAMILY HX OF ISCHEM HEART DIS AND OTH DI 03/07/2018 Orestes MELÉNDEZ MD Ot E11.9 TYPE 2 DIABETES MELLITUS WITHOUT COMPLIC 03/07/2018 Orestes MELÉNDEZ MD Ot E66.9 OBESITY, UNSPECIFIED 03/07/2018 Orestes MELÉNDEZ MD Ot G47.30 SLEEP APNEA, UNSPECIFIED 03/07/2018 Orestes MELÉNDEZ MD Ot I10 ESSENTIAL (PRIMARY) HYPERTENSION 03/07/2018 Orestes MELÉNDEZ MD Ot I48.0 PAROXYSMAL ATRIAL FIBRILLATION 03/07/2018 Orestes MELÉNDEZ MD Ot Z68.36 BODY MASS INDEX (BMI) 36.0-36.9, ADULT 03/07/2018 Orestes MELÉNDEZ MD Ot Z79.01 PULP MIXER (CURRENT) USE OF ANTICOAGULANT 03/07/2018 Orestes MELÉNDEZ MD Ot Z79.84 PULP MIXER (CURRENT) USE OF ORAL HYPOGLYC 03/07/2018 Orestes MELÉNDEZ MD Ot Z79.899 OTHER SENIOR CARE (CURRENT) DRUG THERAPY 03/07/2018 Orestes MELÉNDEZ MD Ot Z82.49 FAMILY HX OF ISCHEM HEART DIS AND OTH DI 03/09/2018 Orestes MELÉNDEZ MD Ot E11.9 TYPE 2 DIABETES MELLITUS WITHOUT COMPLIC 03/09/2018 Orestes MELÉNDEZ MD Ot E66.9 OBESITY, UNSPECIFIED 03/09/2018 Orestes MELÉNDEZ MD Ot G47.30 SLEEP APNEA, UNSPECIFIED 03/09/2018 Orestes MELÉNDEZ MD Ot I10 ESSENTIAL (PRIMARY) HYPERTENSION 03/09/2018 Orestes MELÉNDEZ MD Ot I48.0 PAROXYSMAL ATRIAL FIBRILLATION 03/09/2018 Orestes MELÉNDEZ MD Ot Z68.36 BODY MASS INDEX (BMI) 36.0-36.9, ADULT 03/09/2018 Orestes MELÉNDEZ MD Ot Z79.01 PULP MIXER (CURRENT) USE OF ANTICOAGULANT 03/09/2018 Orestes MELÉNDEZ MD Ot Z79.84 SENIOR CARE (CURRENT) USE OF ORAL HYPOGLYC 03/09/2018 Orestes MELÉNDEZ MD, Ot Z79.899 OTHER PULP MIXER (CURRENT) DRUG THERAPY 03/09/2018 Orestes MELÉNDEZ MD Ot Z82.49 FAMILY HX OF ISCHEM HEART DIS AND OTH DI 03/09/2018 Orestes MELÉNDEZ MD Ot E11.9 TYPE 2 DIABETES MELLITUS WITHOUT COMPLIC 03/09/2018 Orestes MELÉNDEZ MD Ot E66.9 OBESITY, UNSPECIFIED 03/09/2018 Orestes MELÉNDEZ MD Ot G47.30 SLEEP APNEA, UNSPECIFIED 03/09/2018 Orestes MELÉNDEZ MD Ot I10 ESSENTIAL (PRIMARY) HYPERTENSION 03/09/2018 Orestes MELÉNDEZ MD Ot I48.0 PAROXYSMAL ATRIAL FIBRILLATION 03/09/2018 Orestes MELÉNDEZ MD Ot Z68.36 BODY MASS INDEX (BMI) 36.0-36.9, ADULT 03/09/2018 Orestes MELÉNDEZ MD Ot Z79.01 SENIOR CARE (CURRENT) USE OF ANTICOAGULANT 03/09/2018 Orestes MELÉNDEZ MD Ot Z79.84 SENIOR CARE (CURRENT) USE OF ORAL HYPOGLYC 03/09/2018 Orestes MELÉNDEZ MD, Ot Z79.899 OTHER PULP MIXER (CURRENT) DRUG THERAPY 03/09/2018 Orestes MELÉNDEZ MD Ot Z82.49 FAMILY HX OF ISCHEM HEART DIS AND OTH DI 05/05/2018 BRITTANI HUNTER MD Ot 729.5 PAIN IN LIMB 05/05/2018 LEILA CABRERA Ot R00.2 PALPITATIONS 05/05/2018 RENATO MONTANA MD Ot K21.9 GASTRO-ESOPHAGEAL REFLUX DISEASE WITHOUT 05/05/2018 RENATO MONTANA MD Ot Z01.818 ENCOUNTER FOR OTHER PREPROCEDURAL EXAMIN 05/05/2018 RENATO MONTANA MD Ot Z12.11 ENCOUNTER FOR SCREENING FOR MALIGNANT NE 05/05/2018 Orestes MELÉNDEZ MD Ot E11.9 TYPE 2 DIABETES MELLITUS WITHOUT COMPLIC 05/05/2018 Orestes MELÉNDEZ MD Ot E66.9 OBESITY, UNSPECIFIED 05/05/2018 Orestes MELÉNDEZ MD Ot I10 ESSENTIAL (PRIMARY) HYPERTENSION 05/05/2018 Orestes MELÉNDEZ MD Ot I48.91 UNSPECIFIED ATRIAL FIBRILLATION 05/05/2018 Orestes MELÉNDEZ MD Ot E11.9 TYPE 2 DIABETES MELLITUS WITHOUT COMPLIC 05/05/2018 Orestes MELÉNDEZ MD Ot E66.9 OBESITY, UNSPECIFIED 05/05/2018 Orestes MELÉNDEZ MD Ot I10 ESSENTIAL (PRIMARY) HYPERTENSION 05/05/2018 Orestes MELÉNDEZ MD Ot I48.91 UNSPECIFIED ATRIAL FIBRILLATION 05/05/2018 Orestes MELÉNDEZ MD Ot E11.9 TYPE 2 DIABETES MELLITUS WITHOUT COMPLIC 05/05/2018 Orestes MELÉNDEZ MD Ot E66.9 OBESITY, UNSPECIFIED 05/05/2018 Orestes MELÉNDEZ MD Ot G47.30 SLEEP APNEA, UNSPECIFIED 05/05/2018 Orestes MELÉNDEZ MD Ot I10 ESSENTIAL (PRIMARY) HYPERTENSION 05/05/2018 Orestes MELÉNDEZ MD Ot I48.91 UNSPECIFIED ATRIAL FIBRILLATION 05/05/2018 Orestes MELÉNDEZ MD Ot Z53.9 PROCEDURE AND TREATMENT NOT CARRIED OUT, 05/05/2018 Orestes MELÉNDEZ MD Ot Z68.41 BODY MASS INDEX (BMI) 40.0-44.9, ADULT 05/05/2018 Orestes MELÉNDEZ MD Ot Z79.01 SENIOR CARE (CURRENT) USE OF ANTICOAGULANT 05/05/2018 Orestes MELÉNDEZ MD Ot Z79.84 PULP MIXER (CURRENT) USE OF ORAL HYPOGLYC 05/05/2018 Orestes MELÉNDEZ MD, Ot Z79.899 OTHER SENIOR CARE (CURRENT) DRUG THERAPY Procedures There is no [...] Status Pt. Type Provider Facility Loc./Unit Complaint [id number] 03/03/2018 07:58:00 03/03/2018 10:46:00 DIS Outpatient Orestes MELÉNDEZ MD [facility] AF [id number] 01/27/2018 07:57:00 01/27/2018 14:39:00 DIS Outpatient Orestes MELÉNDEZ MD [facility] AFIB [id number] 12/30/2017 07:38:00 12/30/2017 13:35:00 DIS Outpatient Orestes MELÉNDEZ MD [facility] AFIB,ABN NUCLEAR STRESS TEST [id number] 12/09/2017 07:24:00 12/09/2017 23:59:59 CLS Outpatient Orestes MELÉNDEZ MD [facility] CARD I48.91 A FIB [id number] 12/08/2017 11:01:00 12/08/2017 23:59:59 CLS Outpatient Orestes MELÉNDEZ MD [facility] CARD I48.91 AFIB [id number] 12/02/2017 10:32:00 12/02/2017 23:59:59 CLS Outpatient Orestes MELÉNDEZ MD [facility] AF [id number] 11/24/2017 13:15:00 11/24/2017 23:59:59 CLS Preadmit RENATO MONTANA MD [facility] ENDO SCREENING/ABD PAIN/ REFLUX [id number] 11/19/2017 05:35:00 11/19/2017 23:59:59 CLS Outpatient RENATO MONTANA MD [facility] PREOP COLONOSCOPY/EGD [id number] 12/30/2015 09:00:00 12/30/2015 23:59:59 CLS Preadmit LEILA CABRERA AN/SYQ 13 NAV/C2 OPERATOR [facility] CARD PALP [id number] 09/30/2015 08:58:00 12/29/2015 00:01:00 DIS Outpatient LEILA CABRERA AN/SYQ 13 NAV/C2 OPERATOR [facility] CARD PALP [id number] 08/27/2015 21:12:00 08/28/2015 06:45:00 DIS Outpatient LUL JORDAN MD [facility] SLEEP OBSERVED APNEAS SNORING MIKAELA [id number] 03/22/2013 15:43:00 03/22/2013 23:59:59 CLS Outpatient BRITTANI HUNTER MD [facility] RAD RT FOOT PAIN [id number] 05/05/2018 07:18:00 ACT Outpatient Orestes MELÉNDEZ MD Via [facility] AF,HTN,DM [id number] 09/30/2015 08:56:00 Document Registration [id number] 09/09/2017 09:45:00 09/09/2017 23:59:59 CLS Outpatient
[2018-05-05 07:50] LABS: HEMOGLOBIN 14.7 G/DL (13.3-17.7); MEAN PLATELET VOLUME 11.5 FL (7.4-10.4); RED BLOOD COUNT 4.58 10^6/uL (4.35-5.85); RED CELL DISTRIBUTION WIDTH 13.7 % (10.0-14.5); WHITE BLOOD COUNT 6.4 10^3/uL (4.3-11.0)
[2018-05-05 08:01] LABS: INR 1.3 (0.8-1.4); PROTHROMBIN TIME PATIENT 15.8 SEC (12.2-14.7)
[2018-05-05 08:09] LABS: ALANINE AMINOTRANSFERASE 25 U/L (0-55); ALBUMIN 4.3 GM/DL (3.2-4.5); ALKALINE PHOSPHATASE 76 U/L (40-136); BILIRUBIN,TOTAL 1.5 MG/DL (0.1-1.0); BUN/CREATININE RATIO 20; CALCIUM 9.4 MG/DL (8.5-10.1); CARBON DIOXIDE 22 MMOL/L (21-32); CHLORIDE 105 MMOL/L (98-107); GFR ESTIMATED > 60; GLUCOSE 92 MG/DL (70-105); POTASSIUM 4.5 MMOL/L (3.6-5.0); SODIUM 137 MMOL/L (135-145); TOTAL PROTEIN 7.3 GM/DL (6.4-8.2)
[2018-05-05] MEDS ORDERED: proPOfol 200 MG/20 ML (DIPRIVAN) VIAL IV ONE (09:25)
[2018-05-05] MEDS ORDERED: MIDAZOLAM 2 MG/2 ML (VERSED) VIAL ONE (09:25)
--- NOTE | 2018-05-05 10:34 | Anesthesia-Procedure Note ---
Procedures/Interventions Procedure Start/Stop/Diagnosis Date of Procedure: May 05, 2018 Start Time: 10:00 Referring Physician: Katia Preprocedural Diagnosis: Atrial Fibrillation Brief History Called to laboratory technical specialist for scheduled cardioversion of pt referred by Dr. Montalvo. Pt sitting supine on bed with VSS. O2 per NC. ASA3 and all emergency equipment available. Propofol boluses given in increments for a total of 120mg. Pt cardioversion to SR. VSS Left pt in care of RN with report spontaneously breathing. Stop Time: 10:15 Postprocedural Diagnosis: Atrial Fibrillation JESSE STORY CRNA May 05, 2018 10:34
--- NOTE | 2018-05-05 12:50 | Cardioversion ---
Cardioversion PROCEDURE PHYSICIAN: Jeny Montalvo MD DATE OF PROCEDURE: 05/05/18 DIRECT EXTERNAL ELECTRICAL CARDIOVERSION: Indications: Atrial Fibrillation with controlled ventricular rate Preoperative diagnoses: Atrial Fibrillation with controlled ventricular rate Postoperative diagnosis: Sinus rhythm, Successful Electrical Cardioversion History: Atrial fibrillation with previous successful cardioversion, however the patient developed recurrent atrial fibrillation. Multaq was started for 2 weeks. Patient continues to be on uninterrupted Eliquis for at least the last one month. Anesthesia: By Anesthesia services Complications: None Specimen: None Contrast: none Flouroscopy: none Procedure Details: The patient was brought the lab support tech after informed consent was taken, all the risks and complications were explained including the risk of stroke. Electrical cardioversion was carried out with anesthesia support with propofol. 120 joules of synchronized shock was delivered through external patches which promptly restored sinus rhythm. The patient tolerated the procedure well. Conclusions: 1.Successful Cardioversion. 2.Continue oral anticoagulation and rate controlling agent. 3.Follow up in office in 7 days. Jeny Montalvo MD, RS, CCDS Cardiac Electrophysiology Orestes MONTALVO MD May 05, 2018 12:50 pm
--- NOTE | 2018-05-25 17:05 | History & Physicial-Cardiolgy ---
HPI-Cardiology Cardiology Consultation: Date of Consultation 05/25/18 Date of Admission 05/25/2018 Attending Physician Orestes Montalvo MD Admitting Physician Marlyn Alcaraz MD Consulting Physician Orestes MONTALVO MD HPI: Time Seen by Provider: 09:00 Chief Complaint: Atrial fibrillation This is a 68-year-old gentleman with history of recurrent atrial fibrillation. He is symptomatic with atrial fibrillation and is here for cardioversion. Review of Systems-Cardiology Review of Systems Constitutional: As described under HPI; No As described under HPI, No no symptoms reported, No chills, No fever, No lightheadedness Eyes: No As described under HPI, No no symptoms reported, No blindness, No blurred vision, No contact lenses, No drainage, No decreased acuity, No foreign body sensation, No pain, No vision change Ears/Nose/Throat: No As described under HPI, No no symptoms reported, No chronic hearing loss, No ear discharge, No ear pain, No nasal drainage, No ulcerations Respiratory: No no symptoms reported; As described under HPI; No As described under HPI, No cough, No orthopnea, No shortness of breath, No SOB with excertion Cardiovascular: No no symptoms reported; As described under HPI; No As described under HPI, No chest pain, No edema; irregular heart rate; No lightheadedness; palpitations Gastrointestinal: No no symptoms reported, No As described under HPI, No abdomen distended, No abdominal pain, No blood streaked bowels, No constipation , No diarrhea, No nausea, No vomiting, No stool coloration changes Genitourinary: No As described under HPI, No burning, No dysuria, No discharge , No frequency, No flank pain, No hematuria, No urgency Skin: No rash, No skin related problems, No ulcerations Psychiatric/Neurological: No anxiety, No depression, No seizure, No focal weakness, No syncope Hematologic: No bleeding abnormalities [id number] Hx Patient Social History Smoking Status: Never a Smoker Recent Foreign Travel: No Recent Infectious Disease Expo: No Past Medical History PMH As described under Assessment. Allergies and Home Medications Allergies Coded Allergies: ibuprofen (Verified Allergy, Mild, 05/18/18) Penicillins (Verified Allergy, Unknown, 05/18/18) aspirin (Verified Allergy, Unknown, 05/18/18) codeine (Verified Allergy, Unknown, 05/18/18) Home Medications Acetaminophen 500 Mg Tablet, 1,000 MG PO TID PRN for PAIN-BREAKTHROUGH, ( Reported) Apixaban 5 Mg Tablet, 5 MG PO BID, (Reported) Ascorbate Calcium 500 Mg Tablet, 500 MG PO DAILY, (Reported) Bisoprolol Fumarate/Hctz 1 Each Tablet, 1 TAB PO DAILY, (Reported) Cranberry Fruit 400 Mg Tablet, 400 MG PO DAILY, (Reported) Fluticasone Propionate 16 Gm [place].susp, 2 SPRAYS NS DAILY PRN for ALLERGIES, ( Reported) Multivitamin 1 Each Tablet, 1 TAB PO DAILY, (Reported) Pantoprazole Sodium 40 Mg Tablet.dr, 40 MG PO DAILY, (Reported) Tamsulosin HCl 0.4 Mg Cap.er.24h, 0.4 MG PO DAILY, (Reported) Patient Home Medication List Home Medication List Reviewed: Yes Physical Exam-Cardiology Physical Exam Vital Signs/I&O Capillary Refill : Constitutional: appears stated age; No apparent distress; well-developed, well- nourished HEENT: PERRL; No discharge; hearing is well preserved, oral hygience is good; No ulceration, No xanthelasmas are seen Neck: No carotid bruit; carotid pulses are 2 + bilaterally Respiratory: No accessory muscle use, No respiratory distress, No chest tender , No chest expansion is symmetric, No chest is bilaterally symmetric, No lungs clear to percussion, No lungs clear to auscultation, No crackles, No rhonchi, No rales, No stridor, No wheezing, No pleural rub, No other Cardiovascular: irregularly irregular, S1 and S2 Gastrointestinal: No tender, No soft, No round, No distended, No pulsatile mass , No organomegaly, No guarding, No rebound, No tenderness, No hernia, No mass, No audible bowel sounds, No abnormal bowel sounds, No abdominal bruits, No spleenomegaly, No other Rectal: deferred Extremities: No normal range of motion, No non-tender, No normal inspection, No pedal edema, No calf tenderness, No normal capillary refill, No pelvis stable , No calf tenderness, No inflammation, No pedal edema, No slow capillary refill , No swelling, No other, No abrasion, No clubbing, No cyanosis, No ecchymosis, No laceration, No no lower extremity edema bilateral, No significant edema, No tenderness, No wound Neurologic/Psychiatric: no motor/sensory deficits, alert, normal mood/affect, oriented x 3, power is 5/5 both on sides Skin: No normal color, No warm/dry, No cyanosis, No cool, No diaphoresis, No damp, No ecchymosis, No jaundice, No mottled, No pallor, No rash, No tattoos/ piercings, No ulcerations, No rash on exposed areas, No ulcerations on exposed areas, No other Data Review Labs Microbiology 05/05/18 MRSA Screen - Final, Complete MRSA not isolated ECG Impression ECG Initial ECG Impression: Atrial Fibrillation w/RVR A/P-Cardiology Assessment/Admission Diagnosis Atrial fibrillation Admission Status: Observation Plan Atrial fibrillation, electrical cardioversion is recommended. Patient will continue on antiarrhythmic therapy, oral anti-coag ablation. Orestes MONTALVO MD May 25, 2018 17:05
== END 2018-05-05 11:50 | disposition home or self-care (01) ==
LOC: CATH 07:18 → SURG 10:45 → CATH 11:50
PROVIDERS: ATTEND Internal Medicine Interventional Cardiology
DX: I48.0 Paroxysmal atrial fibrillation (principal); I10 Essential (primary) hypertension; I08.1 Rheumatic disorders of both mitral and tricuspid valves; E11.9 Type 2 diabetes mellitus without complications; G47.33 Obstructive sleep apnea (adult) (pediatric); Z82.49 Family history of ischemic heart disease and other diseases of the circulatory system; Z79.01 Long term (current) use of anticoagulants; Z79.84 Long term (current) use of oral hypoglycemic drugs; Z79.899 Other long term (current) drug therapy
CPT/HCPCS: 36415; 80053; 85027; 85610; 85730; 87081; 92960; 93005

== ENCOUNTER 2018-05-11 06:13 | Outpatient (CLI) | payer OTHER ==
[~2018-05-11] VITALS: Ht 177.8 cm; Wt 115.7 kg
== END 2018-05-11 14:56 ==
LOC: PREOP 06:13
PROVIDERS: ATTEND Surgery
DX: Z01.818 Encounter for other preprocedural examination (principal); Z12.11 Encounter for screening for malignant neoplasm of colon; K21.9 Gastro-esophageal reflux disease without esophagitis

== ENCOUNTER 2018-05-18 12:12 | Day surgery (SDC) | payer MEDICARE, OTHER ==
[~2018-05-18] VITALS: Ht 177.8 cm; Wt 115.7 kg
--- OUTSIDE RECORDS SUMMARY | 2018-05-18 12:15 | XMS REPORT | Clinical Summary ---
Author Author [facility] Organization [facility] Address Unknown Phone Unavailable Care Team Providers Care Completions Engineer Name Role Phone PCP Unavailable Source Comments Some departments are not documenting in the electronic medical record. If you do not see the information that you expected, contact Release of Information in the Health Information Management department at [phone] for further assistance in locating additional records.[facility] Allergies Not on File Current Medications Not on file Active Problems Not on file Encounters Date Type Specialty Care Team Description 05/18/2018 Documentation Cardiology Phillip Verma MD from Last 3 Months Social History Tobacco Use Types Packs/Day Years Used Date Never Assessed Sex Assigned at Date Recorded Not on file Last Filed Vital Signs Not on file Plan of Treatment Health Maintenance Due Date Last Done Comments HEPATITIS C SCREENING 1952 PHYSICAL (COMPREHENSIVE) 1959 EXAM PERTUSSIS VACCINE 1963 TETANUS VACCINE 1969 COLORECTAL CANCER 2002 SCREENING SHINGLES RECOMBINANT 2002 VACCINE (1 of 2) PNEUMONIA (PCV13/PPSV23) 2017 VACCINES (1 of 2 - PCV13) INFLUENZA VACCINE 07/25/2018 Results Not on filefrom Last 3 Months
--- OUTSIDE RECORDS SUMMARY | 2018-05-18 12:15 | XMS REPORT | Encounter Summary ---
Author Author [facility] Organization [facility] Address Unknown Phone Unavailable Care Team Providers Care Spring Forger Name Role Phone PCP Unavailable Encounter Details Date Type Department Care Team Description 05/18/2018 Documentation [facility] Card[facility] Phillip Verma MD [facility] [place] [address] [place] [address] [phone] Social History Tobacco Use Types Packs/Day Years Used Date Never Assessed Sex Assigned at Date Recorded Not on file as of this encounter Plan of Treatment Not on fileas of this encounter Visit Diagnoses Not on filein this encounter
[2018-05-18] MEDS ORDERED: NS IV 500 ML 500 ML ONE (12:26)
[2018-05-18 12:35] VITALS: BP 133/83
[2018-05-18] MEDS ORDERED: NS IV 500 ML 500 ML IV SCH (13:00)
[2018-05-18] MEDS ORDERED: LIDOCAINE JELLY 2% (XYLOCAINE) 5 ML TUBE ONE (14:05)
[2018-05-18] MEDS ORDERED: MIDAZOLAM 2 MG/2 ML (VERSED) VIAL ONE ×4 (14:05→14:06)
[2018-05-18] MEDS ORDERED: fentaNYL INJECTION 100 MCG/2 ML AMP ONE ×2 (14:05)
[2018-05-18] MEDS ORDERED: HURRICAINE EXT TUBE (BENZOCAINE) ONE (14:06)
[2018-05-18] MEDS: fentaNYL INJECTION 100 MCG/2 ML AMP IVP PRN ×2 (14:10→14:13)
[2018-05-18] MEDS: MIDAZOLAM 2 MG/2 ML (VERSED) VIAL IVP PRN ×3 (14:12→14:28)
--- NOTE | 2018-05-18 15:02 | Conscious Sedation/ASA ---
Conscious Sedation Pre-Proced Time Reviewed: 12:00 ASA Class: 2 Airway Mallampati Classification: (yocha dehe appropriate class) I. II. III, IV Lungs Heart ASA score ASA 1: a normal healthy patient ASA 2: a patient with a mild systemic disease (mid diabetes, controlled hypertension, obesity ASA 3: a patient with a severe systemic disease that limits activity (angina , COPD, prior Myocardial infarction) ASA 4: a patient with an incapacitating disease that is a constant threat to life (CHF, renal failure) ASA 5: a moribund patient not expected to survive 24 hrs. (ruptured aneurysm) ASA 6: a declared brain patient whose organs are being harvested. For emergent operations, add the letter E after the classification Grade 2 Sedation Plan: Analgesia, Amnesia, Plan communicated to team members, Discussed options with patient/fam, Discussed risks with patient/fam Note The patient is an appropriate candidate to undergo the planned procedure, sedation, and anesthesia. The patient immediately re-assessed prior to indication. RENATO MONTANA MD May 18, 2018 3:02 pm
--- NOTE | 2018-05-18 15:03 | Progress Note-Pre Operative ---
Pre-Operative Progress Note H&P Reviewed The H&P was reviewed, patient examined and no changes noted. Date Seen by Provider: May 18, 2018 Time Seen by Provider: 12:00 Date H&P Reviewed: May 18, 2018 Time H&P Reviewed: 12:00 Pre-Operative Diagnosis: GERD, screening colonoscopy RENATO MONTANA MD May 18, 2018 3:02 pm
--- NOTE | 2018-05-18 15:04 | Progress Note-Post Operative ---
Post-Operative Progess Note Surgeon (s)/Pocket Operator (s) Surgeon RENATO MONTANA MD Pocket Operator: none Pre-Operative Diagnosis GERD, screening colonoscopy Post-Operative Diagnosis reflux esophagitis(class B), small HH(2cm), mild-mod gastritis. chronic stage 2 ext and int hemorrhoids, mild sigmoid diverticulosis. Procedure & Operative Findings Date of Procedure 05/18/18 Procedure Performed/Findings EGD with bx. Colonoscopy. Anesthesia Type CS Estimated Blood Loss Estimated blood loss (mL): minimal Specimens/Packing Specimens Removed GE jxn, antrum RENATO MONTANA MD May 18, 2018 3:04 pm
--- NOTE | 2018-05-18 15:06 | Discharge Inst-Surgical ---
D/C Lap Instructions-RUBÉN Follow Up 10 years of PRN Activity as tolerated High Fiber Diet 25g or more per day Avoid Alcohol, Caffeine, Spicy [place] and Acid foods. Drink 64 fluid oz or more of fluids per day. Symptoms to Report: Fever over 101 degree F, Nausea/Vomiting If any problems/questions: Contact your physician or go to Emergency Room RENATO MONTANA MD May 18, 2018 3:06 pm
[2018-05-18] MEDS ORDERED: HYDROcodone/APAP 5 MG/325 MG (LORTAB) TAB PO PRN (15:15)
[2018-05-18] MEDS ORDERED: HURRICAINE EXT TUBE (BENZOCAINE) XX ONE (15:15)
[2018-05-18] MEDS ORDERED: ONDANSETRON 4 MG/2 ML (SDV) Z0FRAN IV PRN (15:15)
[2018-05-18] MEDS ORDERED: ACETAMINOPHEN 325 MG TABLET PO PRN (15:15)
[2018-05-18] MEDS ORDERED: morphine INJ 10 MG/ML 1ML (SYR OR VIAL) IV PRN (15:15)
[2018-05-18] MEDS ORDERED: LIDOCAINE JELLY 2% (XYLOCAINE) 5 ML TUBE TOP ONE (15:15)
[2018-05-18 15:25] VITALS: BP 122/82
[2018-05-18 15:55] VITALS: BP 119/76
[2018-05-18 16:00] VITALS: BP 119/76
--- NOTE | 2018-05-18 22:11 | OPERATIVE REPORT ---
DATE OF SERVICE: 05/18/2018 ATTENDING PRIMARY CARE PHYSICIAN: Dr. Alcaraz. PREOPERATIVE DIAGNOSIS: Gastroesophageal reflux disease, screening colonoscopy. POSTOPERATIVE DIAGNOSES: Reflux esophagitis class B, small hiatal hernia approximately 2 cm in size, mild to moderate gastritis, chronic stage II external and internal hemorrhoids, mild sigmoid diverticulosis. PROCEDURES: EGD with biopsy, colonoscopy. SURGEON: Renato Montana MD ANESTHESIA: Conscious sedation. ESTIMATED BLOOD LOSS: Minimal. FINDINGS: EGD: Reflux esophagitis class B, small hiatal hernia approximately 2 cm in size, mild to moderate gastritis. No ulcers, polyps or any neoplasms identified. Pylorus and duodenum appeared normal with no distal obstructions. Colonoscopy: Chronic stage II external and internal hemorrhoids, not actively edematous nor inflamed and no bleeding. Prostate gland was palpable and appeared normal. There is mild sigmoid diverticulosis. Remainder of the colon was normal. There were no polyps identified. DISPOSITION: The patient tolerated the procedure well. INDICATIONS: The patient is a 68-year-old male with epigastric discomfort as well as reflux. He has had reflux for several years and was initially on omeprazole, which did work in the initial phases. He states that his symptoms did return and approximately 4 months ago, he was switched to Protonix as well as around the Carafate and states that his symptoms have improved. He does not report any nausea, no vomiting as well as no coffee ground emesis, no hematemesis. His last colonoscopy was greater than 10 years ago. He states for the most part he is doing well, does not report any major issues of diarrhea nor constipation as well as no red blood per rectum nor any dark tarry stools. He also does not report any family history of colon cancer. DESCRIPTION OF PROCEDURE: The patient was brought to the endoscopy suite, laid in the left lateral decubitus position. After adequate IV pain and sedative medications and conscious sedation anesthesia, the mouthpiece was applied. Endoscope was placed in the mouth, visualizing the pharynx and hypopharyngeal region. Vocal cords, epiglottis and vallecula identified and appeared to be normal. The endoscope was gently intubated at the esophageal opening and esophagus insufflated. The endoscope was then advanced to the first, second and third portions of the esophagus; at the level of the GE junction, a reflux esophagitis class B identified. There were no ulcers or strictures identified in this region. A biopsy was taken with forceps with visualization of good hemostasis. The endoscope was then easily advanced in the stomach and endoscope retroflexed visualizing a small hiatal hernia approximately 2 cm in size. There was a mild to moderate gastritis throughout the stomach. There were no formal ulcerations, polyps or any neoplasms identified. A biopsy was taken of the antrum with forceps for H. pylori with visualization of good hemostasis. The endoscope was then advanced to the pylorus and the first and second portion of the duodenum, which appeared normal with no distal obstructions. The endoscope was then slowly withdrawn while taking a second look and suctioning of residual air with no additional findings. The patient tolerated this portion of the procedure well. For his reflux esophagitis, hiatal hernia as well as mild to moderate gastritis; we will recommend the necessary lifestyle and diet accommodation including small and more frequent meals, avoidance of eating at night as well as head elevation while lying supine. He also needs to avoid caffeinated beverages, spicy, greasy and acidic foods. We will also recommend continuation of Protonix 40 mg daily as well as Carafate 1 g q.i.d. on a p.r.n. basis. Under the same conscious sedation anesthesia, we then proceeded with the colonoscopy portion of the procedure. A digital rectal examination was performed, which revealed chronic stage II external and internal hemorrhoids, not actively edematous nor inflamed and no bleeding. Normal sphincter tone was felt and there were no palpable masses. Prostate gland was palpable and appeared normal. The endoscope was then intubated to the anus and rectum gently insufflated. The endoscope was then advanced to the valves of Jamil in the rectum with no polyps or any neoplasms identified. The endoscope was then advanced through the sigmoid colon where a mild sigmoid diverticulosis identified. There were no mucosal inflammatory changes to indicate any active diverticulitis. The endoscope was then advanced to the remainder of the descending, transverse and ascending colon to the cecum. These segments are normal. There were no polyps or any neoplasms identified throughout the colon or rectum. The endoscope was then slowly withdrawn while taking a second look and suctioning of residual air with no additional findings. The patient tolerated the procedure well. We will recommend a high fiber diet with at least 30 grams of fiber per day as well as at least 64 fluid ounces of water to promote soft stools on a daily basis. No polyps were identified and he does not have any family history. He does not need another colonoscopy for another 10 years; however, sooner if he becomes symptomatic. Job ID: [id number] DocumentID: [id number] Dictated Date: 05/18/2018 14:46:25 Tie Inspector Date: 05/18/2018 22:11:01 Dictated By: RENATO MONTANA MD
== END 2018-05-18 16:00 | disposition home or self-care (01) ==
LOC: ENDO 12:12
PROVIDERS: ATTEND Surgery
DX: Z12.11 Encounter for screening for malignant neoplasm of colon (principal); K57.30 Diverticulosis of large intestine without perforation or abscess without bleeding; K64.1 Second degree hemorrhoids; K21.0 Gastro-esophageal reflux disease with esophagitis; K44.9 Diaphragmatic hernia without obstruction or gangrene; K29.70 Gastritis, unspecified, without bleeding; I10 Essential (primary) hypertension; Z79.899 Other long term (current) drug therapy
CPT/HCPCS: 43239; G0121

== ENCOUNTER 2018-07-07 08:35 | Day surgery (SDC) | payer MEDICARE, OTHER ==
[~2018-07-07 08:35] MED LIST changes: -LOSA50TA36 PO; +LOSA50TA7 PO; +METF-397 PO; -METF500T5 PO
[2018-07-07] MEDS ORDERED: NS IV 1000 ML 1,000 ML ONE (08:39)
[2018-07-07] MEDS ORDERED: NS IV 1000 ML 1,000 ML IV SCH (08:45)
--- OUTSIDE RECORDS SUMMARY | 2018-07-07 09:19 | XMS REPORT | Continuity of Care Document ---
Author Author [facility] Organization [facility] Address Unknown Phone Unavailable Allergies Active Description Code Type Severity Reaction Onset Reported/Identified Relationship to Patient Clinical Status Yes ibuprofen [id number] Drug Allergy Mild N/A 05/18/2018 Yes aspirin [id number] Drug Allergy Unknown N/A 05/18/2018 Yes codeine [id number] Drug Allergy Unknown N/A 05/18/2018 Yes Penicillins [id number] Drug Allergy Unknown N/A 05/18/2018 Medications There is no data. Problems Date [...] Ot G47.30 SLEEP APNEA, UNSPECIFIED 12/14/2017 Orestes MELNÉDEZ MD Ot I10 ESSENTIAL (PRIMARY) HYPERTENSION 12/14/2017 Orestes MELÉNDEZ MD Ot I48.91 UNSPECIFIED ATRIAL FIBRILLATION 12/14/2017 Orestes MELÉNDEZ MD Ot Z53.9 PROCEDURE AND TREATMENT NOT CARRIED OUT, 12/14/2017 Orestes MELÉNDEZ MD Ot Z68.41 BODY MASS INDEX (BMI) 40.0-44.9, ADULT 12/14/2017 Orestes MELÉNDEZ MD Ot Z79.01 INTERMEDIATE (CURRENT) USE OF ANTICOAGULANT 12/14/2017 Orestes MELÉNDEZ MD Ot Z79.84 TELEPHONE SOLICITOR (CURRENT) USE OF ORAL HYPOGLYC 12/14/2017 Orestes MELÉNDEZ MD Ot Z79.899 OTHER INTERMEDIATE (CURRENT) DRUG THERAPY 12/28/2017 Orestes MELÉNDEZ MD [...] ADULT 12/30/2017 Orestes MELÉNDEZ MD Ot Z79.01 TELEPHONE SOLICITOR (CURRENT) USE OF ANTICOAGULANT 12/30/2017 Orestes MELÉNDEZ MD Ot Z79.84 INTERMEDIATE (CURRENT) USE OF ORAL HYPOGLYC 12/30/2017 Orestes MELÉNDEZ MD Ot Z79.899 OTHER INTERMEDIATE (CURRENT) DRUG THERAPY 01/06/2018 Orestes MELÉNDEZ MD [...] ADULT 01/06/2018 Orestes MELÉNDEZ MD Ot Z79.01 INTERMEDIATE (CURRENT) USE OF ANTICOAGULANT 01/06/2018 Orestes MELÉNDEZ MD Ot Z79.84 INTERMEDIATE (CURRENT) USE OF ORAL HYPOGLYC 01/06/2018 Orestes MELÉNDEZ MD Ot Z79.899 OTHER INTERMEDIATE (CURRENT) DRUG THERAPY 01/08/2018 Orestes MELÉNDEZ MD [...] ADULT 01/08/2018 Orestes MELÉNDEZ MD Ot Z79.01 INTERMEDIATE (CURRENT) USE OF ANTICOAGULANT 01/08/2018 Orestes MELÉNDEZ MD Ot Z79.84 TELEPHONE SOLICITOR (CURRENT) USE OF ORAL HYPOGLYC 01/08/2018 Orestes MELÉNDEZ MD Ot Z79.899 OTHER INTERMEDIATE (CURRENT) DRUG THERAPY 01/12/2018 Orestes MELÉNDEZ MD Ot E11.9 TYPE 2 DIABETES MELLITUS WITHOUT COMPLIC 01/12/2018 Orestes MELÉNDEZ MD Ot E66.9 OBESITY, UNSPECIFIED 01/12/2018 Orestes MELÉNDEZ MD Ot G47.30 SLEEP APNEA, UNSPECIFIED 01/12/2018 Orestes MELÉNDEZ MD Ot I10 ESSENTIAL (PRIMARY) HYPERTENSION 01/12/2018 Orestes MELÉNDEZ MD Ot I48.91 UNSPECIFIED ATRIAL FIBRILLATION 01/12/2018 Orestes MELÉNDEZ MD Ot Z53.9 PROCEDURE AND TREATMENT NOT CARRIED OUT, 01/12/2018 Orsetes MELÉNDEZ MD Ot Z68.41 BODY MASS INDEX (BMI) 40.0-44.9, ADULT 01/12/2018 Orestes MELÉNDEZ MD Ot Z79.01 INTERMEDIATE (CURRENT) USE OF ANTICOAGULANT 01/12/2018 Orestes MELÉNDEZ MD Ot Z79.84 INTERMEDIATE (CURRENT) USE OF ORAL HYPOGLYC 01/12/2018 Orestes MELÉNDEZ MD Ot Z79.899 OTHER INTERMEDIATE (CURRENT) DRUG THERAPY 01/27/2018 Orestes MELÉNDEZ MD Ot E11.9 TYPE 2 DIABETES MELLITUS WITHOUT COMPLIC 01/27/2018 Orestes MELÉNDEZ MD Ot G47.30 SLEEP APNEA, UNSPECIFIED 01/27/2018 Orestes MELÉNDEZ MD Ot I07.1 RHEUMATIC TRICUSPID INSUFFICIENCY 01/27/2018 Orestes MELÉNDEZ MD Ot I10 ESSENTIAL (PRIMARY) HYPERTENSION 01/27/2018 Orestes MELÉNDEZ MD Ot I48.91 UNSPECIFIED ATRIAL FIBRILLATION 01/27/2018 Orestes MELÉNDEZ MD Ot Z79.84 INTERMEDIATE (CURRENT) USE OF ORAL HYPOGLYC 01/27/2018 Orestes MELÉNDEZ MD Ot Z79.899 OTHER INTERMEDIATE (CURRENT) DRUG THERAPY 01/28/2018 Orestes MELÉNDEZ MD Ot E11.9 TYPE 2 DIABETES MELLITUS WITHOUT COMPLIC 01/28/2018 Orestes MELÉNDEZ MD Ot G47.30 SLEEP APNEA, UNSPECIFIED 01/28/2018 Orestes MELÉNDEZ MD Ot I07.1 RHEUMATIC TRICUSPID INSUFFICIENCY 01/28/2018 Orestes MELÉNDEZ MD Ot I10 ESSENTIAL (PRIMARY) HYPERTENSION 01/28/2018 Orestes MELÉNDEZ MD Ot I48.91 UNSPECIFIED ATRIAL FIBRILLATION 01/28/2018 Orestes MELÉNDEZ MD Ot Z79.84 INTERMEDIATE (CURRENT) USE OF ORAL HYPOGLYC 01/28/2018 Orestes MELÉNDEZ MD Ot Z79.899 OTHER INTERMEDIATE (CURRENT) DRUG THERAPY 01/28/2018 Orestes MELÉNDEZ MD Ot E11.9 TYPE 2 DIABETES MELLITUS WITHOUT COMPLIC 01/28/2018 Orestes MELÉNDEZ MD Ot G47.30 SLEEP APNEA, UNSPECIFIED 01/28/2018 Orestes MELÉNDEZ MD Ot I07.1 RHEUMATIC TRICUSPID INSUFFICIENCY 01/28/2018 Orestes MELÉNDEZ MD Ot I10 ESSENTIAL (PRIMARY) HYPERTENSION 01/28/2018 Orestes MLEÉNDEZ MD Ot I48.91 UNSPECIFIED ATRIAL FIBRILLATION 01/28/2018 Orestes MELÉNDEZ MD Ot Z79.84 TELEPHONE SOLICITOR (CURRENT) USE OF ORAL HYPOGLYC 01/28/2018 Orestes MELÉNDEZ MD Ot Z79.899 OTHER INTERMEDIATE (CURRENT) DRUG THERAPY 03/03/2018 Orestes MELÉNDEZ MD Ot E11.9 TYPE 2 DIABETES MELLITUS WITHOUT COMPLIC 03/03/2018 Orestes MELÉNDEZ MD Ot E66.9 OBESITY, UNSPECIFIED 03/03/2018 Orestes MELÉNDEZ MD Ot G47.30 SLEEP APNEA, UNSPECIFIED 03/03/2018 Orestes MELÉNDEZ MD Ot I10 ESSENTIAL (PRIMARY) HYPERTENSION 03/03/2018 Orestes MELÉNDEZ MD Ot I48.0 PAROXYSMAL ATRIAL FIBRILLATION 03/03/2018 Orestes MELÉNDEZ MD Ot Z68.36 BODY MASS INDEX (BMI) 36.0-36.9, ADULT 03/03/2018 Orestes MELÉNDEZ MD Ot Z79.01 TELEPHONE SOLICITOR (CURRENT) USE OF ANTICOAGULANT 03/03/2018 Orestes MELÉNDEZ MD Ot Z79.84 TELEPHONE SOLICITOR (CURRENT) USE OF ORAL HYPOGLYC 03/03/2018 Orestes MELÉNDEZ MD Ot Z79.899 OTHER INTERMEDIATE (CURRENT) DRUG THERAPY 03/03/2018 Orestes MELÉNDEZ MD Ot Z82.49 FAMILY HX OF ISCHEM HEART DIS AND OTH DI 03/07/2018 Oresets MELÉNDEZ MD Ot E11.9 TYPE 2 DIABETES MELLITUS WITHOUT COMPLIC 03/07/2018 Orestes MELÉNDEZ MD Ot E66.9 OBESITY, UNSPECIFIED 03/07/2018 Orestes MELÉNDEZ MD Ot G47.30 SLEEP APNEA, UNSPECIFIED 03/07/2018 Orestes MELÉNDEZ MD Ot I10 ESSENTIAL (PRIMARY) HYPERTENSION 03/07/2018 Orestes MELÉNDEZ MD Ot I48.0 PAROXYSMAL ATRIAL FIBRILLATION 03/07/2018 Orestes MELÉNDEZ MD Ot Z68.36 BODY MASS INDEX (BMI) 36.0-36.9, ADULT 03/07/2018 Orestes MELÉNDEZ MD Ot Z79.01 TELEPHONE SOLICITOR (CURRENT) USE OF ANTICOAGULANT 03/07/2018 Orestes MELÉNDEZ MD Ot Z79.84 INTERMEDIATE (CURRENT) USE OF ORAL HYPOGLYC 03/07/2018 Orestes MELÉNDEZ MD Ot Z79.899 OTHER INTERMEDIATE (CURRENT) DRUG THERAPY 03/07/2018 Orestes MELÉNDEZ MD [...] ADULT 03/09/2018 Orestes MELÉNDEZ MD Ot Z79.01 TELEPHONE SOLICITOR (CURRENT) USE OF ANTICOAGULANT 03/09/2018 Orestes MELÉNDEZ MD Ot Z79.84 INTERMEDIATE (CURRENT) USE OF ORAL HYPOGLYC 03/09/2018 Orestes MELÉNDEZ MD, Ot Z79.899 OTHER TELEPHONE SOLICITOR (CURRENT) DRUG THERAPY 03/09/2018 Orestes MELÉNDEZ MD [...] ADULT 03/09/2018 Orestes MELÉNDEZ MD Ot Z79.01 INTERMEDIATE (CURRENT) USE OF ANTICOAGULANT 03/09/2018 Orestes MELÉNDEZ MD Ot Z79.84 INTERMEDIATE (CURRENT) USE OF ORAL HYPOGLYC 03/09/2018 Orestes MELÉNDEZ MD, Ot Z79.899 OTHER INTERMEDIATE (CURRENT) DRUG THERAPY 03/09/2018 Orestes MELÉNDEZ MD [...] ADULT 05/05/2018 Orestes MELÉNDEZ MD Ot Z79.01 INTERMEDIATE (CURRENT) USE OF ANTICOAGULANT 05/05/2018 Orestes MELÉNDEZ MD Ot Z79.84 TELEPHONE SOLICITOR (CURRENT) USE OF ORAL HYPOGLYC 05/05/2018 Orestes MELÉNDEZ MD Ot Z79.899 OTHER INTERMEDIATE (CURRENT) DRUG THERAPY 05/05/2018 Orestes MELÉNDEZ MD Ot E11.9 TYPE 2 DIABETES MELLITUS WITHOUT COMPLIC 05/05/2018 Orestes MELÉNDEZ MD Ot G47.33 OBSTRUCTIVE SLEEP APNEA (ADULT) (PEDIATR 05/05/2018 Orestes MELÉNDEZ MD Ot I08.1 RHEUMATIC DISORDERS OF BOTH MITRAL AND T 05/05/2018 Orestes MELÉNDEZ MD Ot I10 ESSENTIAL (PRIMARY) HYPERTENSION 05/05/2018 Orestes MELÉNDEZ MD Ot I48.0 PAROXYSMAL ATRIAL FIBRILLATION 05/05/2018 Orestes MELÉNDEZ MD Ot Z79.01 INTERMEDIATE (CURRENT) USE OF ANTICOAGULANT 05/05/2018 Orestes MELÉNDEZ MD Ot Z79.84 TELEPHONE SOLICITOR (CURRENT) USE OF ORAL HYPOGLYC 05/05/2018 Orestes MELÉNDEZ MD Ot Z79.899 OTHER TELEPHONE SOLICITOR (CURRENT) DRUG THERAPY 05/05/2018 Orestes MELÉNDEZ MD Ot Z82.49 FAMILY HX OF ISCHEM HEART DIS AND OTH DI 05/06/2018 Orestes MELÉNDEZ MD Ot E11.9 TYPE 2 DIABETES MELLITUS WITHOUT COMPLIC 05/06/2018 Orestes MELÉNDEZ MD Ot G47.33 OBSTRUCTIVE SLEEP APNEA (ADULT) (PEDIATR 05/06/2018 Orestes MELÉNDEZ MD Ot I08.1 RHEUMATIC DISORDERS OF BOTH MITRAL AND T 05/06/2018 Orestes MELÉNDEZ MD Ot I10 ESSENTIAL (PRIMARY) HYPERTENSION 05/06/2018 Orestes MELÉNDEZ MD Ot I48.0 PAROXYSMAL ATRIAL FIBRILLATION 05/06/2018 Orestes MELÉNDEZ MD Ot Z79.01 INTERMEDIATE (CURRENT) USE OF ANTICOAGULANT 05/06/2018 Orestes MELÉNDEZ MD Ot Z79.84 INTERMEDIATE (CURRENT) USE OF ORAL HYPOGLYC 05/06/2018 Orestes MELÉNDEZ MD Ot Z79.899 OTHER TELEPHONE SOLICITOR (CURRENT) DRUG THERAPY 05/06/2018 Orestes MELÉNDEZ MD Ot Z82.49 FAMILY HX OF ISCHEM HEART DIS AND OTH DI 05/11/2018 Orestes MELÉNDEZ MD Ot E11.9 TYPE 2 DIABETES MELLITUS WITHOUT COMPLIC 05/11/2018 Orestes MELÉNDEZ MD Ot G47.33 OBSTRUCTIVE SLEEP APNEA (ADULT) (PEDIATR 05/11/2018 MEDHAT CLAROS, Orestes BOCANEGRA Ot I08.1 RHEUMATIC DISORDERS OF BOTH MITRAL AND T 05/11/2018 Orestes MELÉNDEZ MD Ot I10 ESSENTIAL (PRIMARY) HYPERTENSION 05/11/2018 Orestes MELÉNDEZ MD Ot I48.0 PAROXYSMAL ATRIAL FIBRILLATION 05/11/2018 Orestes MELÉNDEZ MD Ot Z79.01 TELEPHONE SOLICITOR (CURRENT) USE OF ANTICOAGULANT 05/11/2018 Orestes MELÉNDEZ MD Ot Z79.84 INTERMEDIATE (CURRENT) USE OF ORAL HYPOGLYC 05/11/2018 Orestes MELÉNDEZ MD, Ot Z79.899 OTHER TELEPHONE SOLICITOR (CURRENT) DRUG THERAPY 05/11/2018 Orestes MELÉNDEZ MD, Ot Z82.49 FAMILY HX OF ISCHEM HEART DIS AND OTH DI 05/12/2018 RENATO MONTANA MD, Ot K21.9 GASTRO-ESOPHAGEAL REFLUX DISEASE WITHOUT 05/12/2018 RENATO MONTANA MD Ot Z01.818 ENCOUNTER FOR OTHER PREPROCEDURAL EXAMIN 05/12/2018 RENATO MONTANA MD, Ot Z12.11 ENCOUNTER FOR SCREENING FOR MALIGNANT NE 05/18/2018 LEILA CABRERA LABORER VINE[employer]ARD Ot R00.2 PALPITATIONS 05/18/2018 RENATO MONTANA MD Ot I10 ESSENTIAL (PRIMARY) HYPERTENSION 05/18/2018 RENATO MONTANA MD, Ot K21.0 GASTRO-ESOPHAGEAL REFLUX DISEASE WITH ES 05/18/2018 RENATO MONTANA MD Ot K29.70 GASTRITIS, UNSPECIFIED, WITHOUT BLEEDING 05/18/2018 RENATO MONTANA MD Ot K44.9 DIAPHRAGMATIC HERNIA WITHOUT OBSTRUCTION 05/18/2018 RENATO MONTANA MD Ot K57.30 DVRTCLOS OF LG INT W/O PERFORATION OR AB 05/18/2018 RENATO MONTANA MD, Ot K64.1 SECOND DEGREE HEMORRHOIDS 05/18/2018 RENATO MONTANA MD Ot Z12.11 ENCOUNTER FOR SCREENING FOR MALIGNANT NE 05/18/2018 RENATO MONTANA MD, Ot Z79.899 OTHER TELEPHONE SOLICITOR (CURRENT) DRUG THERAPY 05/19/2018 RENATO MONTANA MD, Ot I10 ESSENTIAL (PRIMARY) HYPERTENSION 05/19/2018 RENATO MONTANA MD, Ot K21.0 GASTRO-ESOPHAGEAL REFLUX DISEASE WITH ES 05/19/2018 RENATO MONTANA MD, Ot K29.70 GASTRITIS, UNSPECIFIED, WITHOUT BLEEDING 05/19/2018 RENATO MONTANA MD, Ot K44.9 DIAPHRAGMATIC HERNIA WITHOUT OBSTRUCTION 05/19/2018 RENATO MONTANA MD, Ot K57.30 DVRTCLOS OF LG INT W/O PERFORATION OR AB 05/19/2018 RENATO MONTANA MD, Ot K64.1 SECOND DEGREE HEMORRHOIDS 05/19/2018 RENATO MONTANA MD, Ot Z12.11 ENCOUNTER FOR SCREENING FOR MALIGNANT NE 05/19/2018 RENATO MONTANA MD, Ot Z79.899 OTHER INTERMEDIATE (CURRENT) DRUG THERAPY 06/24/2018 Orestes MELÉNDEZ MD, Ot I48.91 UNSPECIFIED ATRIAL FIBRILLATION 06/24/2018 Orestes MELÉNDEZ MD, Ot Z53.9 PROCEDURE AND TREATMENT NOT CARRIED OUT, 06/24/2018 Orestes MELÉNDEZ MD, Ot Z79.01 TELEPHONE SOLICITOR (CURRENT) USE OF ANTICOAGULANT 06/29/2018 Orestes MELÉNDEZ MD, Ot I48.91 UNSPECIFIED ATRIAL FIBRILLATION 06/29/2018 Orestes MELÉNDEZ MD, Ot Z53.9 PROCEDURE AND TREATMENT NOT CARRIED OUT, 06/29/2018 Orestes MELÉNDEZ MD, Ot Z79.01 INTERMEDIATE (CURRENT) USE OF ANTICOAGULANT Procedures There is no data. Results Test [...] resistant Staphylococcus aureus (MRSA) screening culture NEG [facility] Automated blood complete blood count (hemogram) panel - 05/05/18 07:41 Blood leukocytes automated count (number/volume) 6.4 10*3/uL 4.3-11.0 Blood erythrocytes automated count (number/volume) 4.58 10*6/uL 4.35-5.85 Venous blood hemoglobin measurement (mass/volume) 14.7 g/dL 13.3-17.7 Blood hematocrit (volume fraction) 42 % 40-54 Automated erythrocyte mean corpuscular volume 92 [foz_us] 80-99 Automated erythrocyte mean corpuscular hemoglobin (mass per erythrocyte) 32 pg 25-34 Automated erythrocyte mean corpuscular hemoglobin concentration measurement ( mass/volume) 35 g/dL 32-36 Automated erythrocyte distribution width ratio 13.7 % 10.0-14.5 Automated blood platelet count (count/volume) 139 10*3/uL 130-400 Automated blood platelet mean volume measurement 11.5 [foz_us] 7.4-10.4 PT panel in platelet poor plasma by coagulation assay - 05/05/18 07:41 Prothrombin time (PT) in platelet poor plasma by coagulation assay 15.8 s 12.2-14.7 INR in platelet poor plasma or blood by coagulation assay 1.3 0.8-1.4 Activated partial thromboplastin time (aPTT) in platelet poor plasma bycoagulation assay - 05/05/18 07:41 Activated partial thromboplastin time (aPTT) in platelet poor plasma bycoagulation assay 43 s 24-35 Comprehensive metabolic panel - 05/05/18 07:41 Serum or plasma sodium measurement (moles/volume) 137 mmol/L 135-145 Serum or plasma potassium measurement (moles/volume) 4.5 mmol/L 3.6-5.0 Serum or plasma chloride measurement (moles/volume) 105 mmol/L 98-107 Carbon dioxide 22 mmol/L 21-32 Serum or plasma anion gap determination (moles/volume) 10 mmol/L 5-14 Serum or plasma urea nitrogen measurement (mass/volume) 18 mg/dL 7-18 Serum or plasma creatinine measurement (mass/volume) 0.90 mg/dL 0.60-1.30 Serum or plasma urea nitrogen/creatinine mass ratio 20 NRG Serum or plasma creatinine measurement with calculation of estimated glomerular filtration rate > NRG Serum or plasma glucose measurement (mass/volume) 92 mg/dL 70-105 Serum or plasma calcium measurement (mass/volume) 9.4 mg/dL 8.5-10.1 Serum or plasma total bilirubin measurement (mass/volume) 1.5 mg/dL 0.1-1.0 Serum or plasma alkaline phosphatase measurement (enzymatic activity/volume) 76 U/L 40-136 Serum or plasma aspartate aminotransferase measurement (enzymatic activity/ volume) 22 U/L 5-34 Serum or plasma alanine aminotransferase measurement (enzymatic activity/volume ) 25 U/L 0-55 Serum or plasma protein measurement (mass/volume) 7.3 g/dL 6.4-8.2 Serum or plasma albumin measurement (mass/volume) 4.3 g/dL 3.2-4.5 Methicillin resistant Staphylococcus aureus (MRSA) screening culture - 07:41 Methicillin resistant Staphylococcus aureus (MRSA) screening culture NEG NRG Encounters ACCT No. Visit Date/Time Discharge Status Pt. Type Provider Facility Loc./Unit Complaint [id number] 06/23/2018 09:52:00 06/23/2018 23:59:59 CLS Outpatient Orestes MELÉNDEZ MD [facility] CATH AF [id number] 05/18/2018 12:12:00 05/18/2018 16:00:00 DIS Outpatient RENATO MONTANA MD [facility] ENDO SCREENING/REFLUX [id number] 05/11/2018 06:13:00 05/11/2018 14:56:00 DIS Outpatient RENATO MONTANA MD [facility] PREOP COLONOSCOPY/EGD [id number] 05/05/2018 07:18:00 05/05/2018 11:50:00 DIS Outpatient Orestes MELÉNDEZ MD [facility] AF,HTN,DM [id number] 03/03/2018 07:58:00 03/03/2018 10:46:00 DIS Outpatient Orestes MELÉNDEZ MD [facility] AF [id number] 01/27/2018 07:57:00 01/27/2018 14:39:00 DIS Outpatient Orestes MELÉNDEZ MD [facility] AFIB [id number] 12/30/2017 07:38:00 12/30/2017 13:35:00 DIS Outpatient Orestes MELÉNDEZ MD [facility] AFIB,ABN NUCLEAR STRESS TEST [id number] 12/09/2017 07:24:00 12/09/2017 23:59:59 CLS Outpatient Orestes MELÉNDEZ MD [facility] CARD I48.91 A FIB [id number] 12/08/2017 11:01:00 12/08/2017 23:59:59 CLS Outpatient Orestes MELÉNDEZ MD [facility] CARD I48.91 AFIB [id number] 12/02/2017 10:32:00 12/02/2017 23:59:59 CLS Outpatient Orestes MELÉNDEZ MD [facility] AF [id number] 11/19/2017 05:35:00 11/19/2017 23:59:59 CLS Outpatient RENATO MONTANA MD [facility] PREOP COLONOSCOPY/EGD [id number] 12/30/2015 09:00:00 12/30/2015 23:59:59 CLS Preadmit LEILA CABRERA [facility] CARD PALP [id number] 09/30/2015 08:58:00 12/29/2015 00:01:00 DIS Outpatient LEILA CABRERA [facility] CARD PALP [id number] 08/27/2015 21:12:00 08/28/2015 06:45:00 DIS Outpatient LUL JORDAN MD [facility] SLEEP OBSERVED APNEAS SNORING MIKAELA [id number] 03/22/2013 15:43:00 03/22/2013 23:59:59 CLS Outpatient DALE CLAROS, BRITTANI [place] [facility] RAD RT FOOT PAIN [id number] 07/07/2018 08:35:00 ACT Outpatient Orestes MELÉNDEZ MD [facility] CATH ATRIAL FIBRILLATION [id number] 09/30/2015 08:56:00 Document Registration [id number] 09/09/2017 09:45:00 09/09/2017 23:59:59 CLS Outpatient
--- NOTE | 2018-07-07 13:52 | Anesthesia-General Post-Op ---
MAC Patient Condition Mental Status/LOC: Same as Preop Cardiovascular: Satisfactory Nausea/Vomiting: Absent Respiratory: Satisfactory Pain: Controlled Complications: Absent Post Op Complications Complications None Follow Up Care/Instructions Patient Instructions None needed. Anesthesiology Discharge Order Discharge Order Patient is doing well, no complaints, stable vital signs, no apparent adverse anesthesia problems. No complications reported per nursing. RAYMOND RICHARD CRNA Jul 07, 2018 13:52
== END 2018-07-07 10:16 | disposition home or self-care (01) ==
LOC: CATH 08:35
PROVIDERS: ATTEND Internal Medicine Interventional Cardiology
DX: I48.91 Unspecified atrial fibrillation (principal); Z79.01 Long term (current) use of anticoagulants
CPT/HCPCS: 93005

== ENCOUNTER → 2018-07-19 | Outpatient (CLI) | payer MEDICARE, OTHER ==
--- NOTE | 2018-07-19 14:09 | Diagnostic Imaging Report ---
INDICATION: Gastroparesis The patient was administered a solid test meal with 1.0 mCi Tc 99M sulfur colloid used for labeling of the meal. Region of interest curves were drawn over the stomach with the percent of retained activity calculated at hourly timed intervals for a total of 4 hours. A time activity curve was generated. FINDINGS: Percent retention as follows: (percent of administered activity retained within the stomach): 1.0 hour: 20% <30% = Rapid, >90% = Delayed 2.0 hour: 8% >60% = Abnormally Delayed 3.0 hour: 6% >30% = Abnormally Delayed 4.0 hour: 6% >10% = Abnormally Delayed IMPRESSION: Rather rapid gastric emptying demonstrated. Dictated by: Dictated on workstation # [id number]
== END ==
LOC: CARD 08:27
PROVIDERS: ATTEND Family Medicine
DX: K31.84 Gastroparesis (principal)
CPT/HCPCS: 78264